=== PATIENT | female | born 1955 | race Caucasian/White ===

== ENCOUNTER 2018-10-12 09:23 | Day surgery (SDC) | payer MEDICARE, BC ==
[2018-10-12] MEDS ORDERED: TORAdol 30 mg Injection IV ONE (09:24)
[2018-10-12] MEDS ORDERED: DIPRIVAN 200 MG/20 ML IV ONE (09:24)
[2018-10-12] MEDS ORDERED: Depo-Medrol 40 MG/ML IM ONE (09:24)
[2018-10-12] MEDS ORDERED: Marcaine 0.5% SDV 10 ML IJ ONE (09:24)
[2018-10-12] MEDS ORDERED: TORAdol 30 mg Injection ONE (12:05)
--- NOTE | 2018-10-12 12:21 | XRAY ---
Indication: Left shoulder injection. Intraoperative fluoroscopy was provided for 24 seconds. Single digital spot image submitted for interpretation demonstrates spinal needle tip projecting over the left humeral head. Small amount of contrast injected for needle tip placement. Correlate with intraoperative findings/report.
--- NOTE | 2018-10-12 14:44 | XRAY ---
24 seconds fluoroscopy time in surgery for left shoulder injection.
[2018-10-12] MEDS ORDERED: Lactated Ringers 1,000 ML IV ONE (14:58)
== END 2018-10-12 12:13 | disposition home or self-care (01) ==
LOC: SDC-PAIN 09:23
PROVIDERS: ATTEND Psychiatry & Neurology Pain Medicine
DX: M19.019 Primary osteoarthritis, unspecified shoulder (principal); Z79.899 Other long term (current) drug therapy
CPT/HCPCS: 20610; 73030; 77002; J1030; J1885; J2704; Q9967

== ENCOUNTER 2019-01-04 10:57 | Day surgery (SDC) | payer MEDICARE, BC ==
[2019-01-04] MEDS ORDERED: DIPRIVAN 200 MG/20 ML IV ONE (10:58)
[2019-01-04] MEDS ORDERED: Xylocaine-Mpf 2 ML IJ ONE (10:58)
[2019-01-04] MEDS ORDERED: Depo-Medrol 40 MG/ML IM ONE (10:58)
[2019-01-04] MEDS ORDERED: Ketamine HCl 50 MG/ML IV ONE (10:58)
[2019-01-04] MEDS ORDERED: Xylocaine-Mpf 2% 5 Ml Vial IJ ONE (10:58)
--- NOTE | 2019-01-04 14:03 | XRAY ---
24 seconds fluoroscopy time in surgery for bilateral L4-S1 MBB.
--- NOTE | 2019-01-04 14:12 | XRAY ---
Indication: Bilateral L4-S1 MBB. Intraoperative fluoroscopy was provided for 24 seconds. 2 digital spot images submitted for interpretation demonstrates posterior needle tips projecting over the expected course of the left and right L4-S1 nerve roots. Correlate with intraoperative findings/report. Incidental bilateral L3-S1 posterior pedicle screws/spinal rods and intervertebral spacers.
[2019-01-04] MEDS ORDERED: Lactated Ringers 1,000 ML IV ONE (15:40)
== END 2019-01-04 13:07 | disposition home or self-care (01) ==
LOC: SDC-PAIN 10:57
PROVIDERS: ATTEND Psychiatry & Neurology Pain Medicine
DX: M47.817 Spondylosis without myelopathy or radiculopathy, lumbosacral region (principal); Z79.899 Other long term (current) drug therapy; K21.9 Gastro-esophageal reflux disease without esophagitis; E78.5 Hyperlipidemia, unspecified; F32.9 Major depressive disorder, single episode, unspecified
CPT/HCPCS: 64493; 64494; 72020; 77002; J1030; J2704

== ENCOUNTER 2019-02-22 09:56 | Day surgery (SDC) | payer MEDICARE, BC ==
[2019-02-22] MEDS ORDERED: Marcaine 0.5% SDV 10 ML IJ ONE (09:57)
[2019-02-22] MEDS ORDERED: Depo-Medrol 40 MG/ML IM ONE (09:57)
[2019-02-22] MEDS ORDERED: DIPRIVAN 200 MG/20 ML IV ONE (09:57)
[2019-02-22] MEDS ORDERED: TORAdol 30 mg Injection ONE (12:23)
--- NOTE | 2019-02-22 13:04 | XRAY ---
Indication: Bilateral L2-S1 MBB. Intraoperative fluoroscopy was provided for 39 seconds. Single digital spot image submitted for interpretation demonstrates posterior needle tips projecting over the expected course of the left and right L2-L5 nerve roots. Correlate with intraoperative findings/report. Incidental bilateral L3-S1 posterior spinal hardware and intervertebral spacers.
--- NOTE | 2019-02-22 13:06 | XRAY ---
39 seconds fluoroscopy time in surgery for bilateral L2-S1 MBB.
[2019-02-22] MEDS ORDERED: Lactated Ringers 1,000 ML IV ONE (17:02)
== END 2019-02-22 12:25 | disposition home or self-care (01) ==
LOC: SDC-PAIN 09:56
PROVIDERS: ATTEND Psychiatry & Neurology Pain Medicine
DX: M47.816 Spondylosis without myelopathy or radiculopathy, lumbar region (principal); E78.5 Hyperlipidemia, unspecified; F32.9 Major depressive disorder, single episode, unspecified
CPT/HCPCS: 72020; 77002; J1030; J1885; J2704

== ENCOUNTER 2019-06-28 10:48 | Day surgery (SDC) | payer MEDICARE, BC ==
[2019-06-28] MEDS ORDERED: Depo-Medrol 40 MG/ML IM ONE (10:49)
[2019-06-28] MEDS ORDERED: Marcaine 0.5% SDV 10 ML IJ ONE (10:49)
[2019-06-28] MEDS ORDERED: Ketamine HCl 50 MG/ML ONE (11:33)
[2019-06-28] MEDS ORDERED: DIPRIVAN 200 MG/20 ML IV ONE (11:33)
[2019-06-28] MEDS ORDERED: TORAdol 30 mg Injection ONE (11:55)
[2019-06-28] MEDS ORDERED: MORPHINE SULFATE 10 MG/ML ONE (12:04)
--- NOTE | 2019-06-28 14:20 | XRAY ---
44 seconds fluoroscopy time in surgery for bilateral L2-L5 MBB.
--- NOTE | 2019-06-28 14:20 | XRAY ---
Indication: Bilateral L2-L5 MBB. Intraoperative fluoroscopy was provided for 44 seconds. 2 digital spot images submitted for interpretation demonstrates posterior needle tips projecting over the expected course of the left and right L2-L5 nerve roots. Correlate with intraoperative findings/report. Incidental bilateral L3-S1 posterior spinal hardware and intervertebral spacers.
[2019-06-28] MEDS ORDERED: Lactated Ringers 1,000 ML IV ONE (15:25)
== END 2019-06-28 12:06 | disposition home or self-care (01) ==
LOC: SDC-PAIN 10:48 → SDC 10:48 → SDC-PAIN 12:06
PROVIDERS: ATTEND Psychiatry & Neurology Pain Medicine
DX: M47.816 Spondylosis without myelopathy or radiculopathy, lumbar region (principal); E78.00 Pure hypercholesterolemia, unspecified; E78.5 Hyperlipidemia, unspecified; F32.9 Major depressive disorder, single episode, unspecified; Z79.899 Other long term (current) drug therapy
CPT/HCPCS: 64493; 64494; 64495; 72020; 77002; J1030; J1885; J2270; J2704

== ENCOUNTER 2019-08-16 09:26 | Day surgery (SDC) | payer MEDICARE, BC ==
[2019-08-16] MEDS ORDERED: Xylocaine 1% Vial 30 ML PF IJ ONE (09:27)
[2019-08-16] MEDS ORDERED: Depo-Medrol 40 MG/ML IM ONE (09:27)
[2019-08-16] MEDS ORDERED: Marcaine 0.5% SDV 10 ML IJ ONE (09:27)
[2019-08-16] MEDS ORDERED: DIPRIVAN 200 MG/20 ML IV ONE ×2 (10:31→10:53)
[2019-08-16] MEDS ORDERED: Ketamine HCl 50 MG/ML ONE (10:33)
[2019-08-16] MEDS ORDERED: TORAdol 30 mg Injection ONE (11:22)
--- NOTE | 2019-08-16 11:28 | XRAY ---
Indication: L2-L5 RFA. Intraoperative fluoroscopy was provided for 54 seconds. 2 digital spot images submitted for interpretation demonstrates posterior needle tips projecting over the expected course of the right L2-L5 nerve roots. Correlate with intraoperative findings/report. Incidental partially visualized posterior L3-S1 fusion hardware/intervertebral spacers.
--- NOTE | 2019-08-16 12:21 | XRAY ---
54 seconds fluoroscopy time in surgery for right L2-L5 RFA.
[2019-08-16] MEDS ORDERED: Lactated Ringers 1,000 ML IV ONE (14:30)
== END 2019-08-16 11:25 | disposition home or self-care (01) ==
LOC: SDC-PAIN 09:26
PROVIDERS: ATTEND Psychiatry & Neurology Pain Medicine
DX: M47.816 Spondylosis without myelopathy or radiculopathy, lumbar region (principal); E78.5 Hyperlipidemia, unspecified; F41.8 Other specified anxiety disorders; E78.00 Pure hypercholesterolemia, unspecified; Z79.899 Other long term (current) drug therapy
CPT/HCPCS: 64635; 64636; 72100; 77002; J1030; J1885; J2001; J2704

== ENCOUNTER 2020-03-06 10:19 | Day surgery (SDC) | payer MEDICARE, BC ==
[2020-03-06] MEDS ORDERED: Marcaine 0.5% SDV 10 ML IM ONE (10:20)
[2020-03-06] MEDS ORDERED: Depo-Medrol 40 MG/ML IM ONE (10:20)
[2020-03-06] MEDS ORDERED: Ketamine HCl 50 MG/ML ONE (11:05)
[2020-03-06] MEDS ORDERED: DIPRIVAN 200 MG/20 ML IV ONE (11:05)
[2020-03-06] MEDS ORDERED: MORPHINE SULFATE 10 MG/ML ONE (11:25)
--- NOTE | 2020-03-06 12:35 | XRAY ---
Indication: Left L2-L5 MBB. Intraoperative fluoroscopy was provided for 36 seconds. Single digital spot image submitted for interpretation demonstrates posterior needle tips projecting over the expected course of the left L2-L5 nerve roots. Correlate with intraoperative findings/report. Incidental bilateral L3-S1 posterior spinal hardware and intervertebral spacers.
--- NOTE | 2020-03-06 12:48 | XRAY ---
36 seconds fluoroscopy time in surgery for left L2-L5 MBB.
[2020-03-06] MEDS ORDERED: Lactated Ringers 1,000 ML IV ONE (14:52)
== END 2020-03-06 11:37 | disposition home or self-care (01) ==
LOC: SDC-PAIN 10:19
PROVIDERS: ATTEND Psychiatry & Neurology Pain Medicine
DX: M47.816 Spondylosis without myelopathy or radiculopathy, lumbar region (principal); E78.5 Hyperlipidemia, unspecified; F41.8 Other specified anxiety disorders; Z79.899 Other long term (current) drug therapy
CPT/HCPCS: 64493; 64494; 64495; 72020; 77002; J1030; J2270; J2704

== ENCOUNTER 2020-07-03 10:23 | Day surgery (SDC) | payer MEDICARE, BC ==
[~2020-07-03 10:23] MED LIST: DIPRIVAN 200 MG/20 ML IV ONE; Ketamine HCl 50 MG/ML ONE
[2020-07-03] MEDS ORDERED: Depo-Medrol 40 MG/ML IM ONE (10:24)
[2020-07-03] MEDS ORDERED: BUPIVACAINE 0.5% VIAL IJ ONE (10:24)
[2020-07-03] MEDS ORDERED: TORAdol 30 mg Injection ONE (11:51)
--- NOTE | 2020-07-03 12:14 | XRAY ---
Indication: Left L2-L5 MBB. Intraoperative fluoroscopy was provided for 24 seconds. 2 digital spot images submitted for interpretation demonstrates posterior needle tips projecting over the expected left L2-L5 nerve roots. Correlate with intraoperative findings/report. Incidental bilateral L3-S1 posterior spinal hardware and intervertebral spacers.
[2020-07-03] MEDS ORDERED: Lactated Ringers 1,000 ML IV ONE (13:48)
--- NOTE | 2020-07-03 17:05 | XRAY ---
24 seconds of fluoroscopy was used in surgery for a left L2-L3, L3-L4, L4-L5 MBB.
== END 2020-07-03 12:00 | disposition home or self-care (01) ==
LOC: SDC-PAIN 10:23
PROVIDERS: ATTEND Psychiatry & Neurology Pain Medicine
DX: M47.816 Spondylosis without myelopathy or radiculopathy, lumbar region (principal); E78.5 Hyperlipidemia, unspecified; F41.8 Other specified anxiety disorders; E78.00 Pure hypercholesterolemia, unspecified; Z79.899 Other long term (current) drug therapy
CPT/HCPCS: 64493; 64494; 72020; 77002; J1030; J1885; J2704

== ENCOUNTER 2020-10-23 10:30 | Day surgery (SDC) | payer MEDICARE, BC ==
[2020-10-23] MEDS ORDERED: BUPIVACAINE 0.5% VIAL IJ ONE (10:31)
[2020-10-23] MEDS ORDERED: Depo-Medrol 40 MG/ML IM ONE (10:31)
[2020-10-23] MEDS ORDERED: Ketamine HCl 50 MG/ML ONE (11:48)
[2020-10-23] MEDS ORDERED: DIPRIVAN 200 MG/20 ML IV ONE (11:48)
--- NOTE | 2020-10-23 12:56 | XRAY ---
Indication: Left SI joint injection. Intraoperative fluoroscopy was provided for 11 seconds. 2 digital spot images submitted for interpretation demonstrates posterior needle tip projecting over the inferior left SI joint. Correlate with intraoperative findings/report. Incidental partially visualized lower lumbar posterior fusion hardware.
--- NOTE | 2020-10-23 12:56 | XRAY ---
Indication: Left greater trochanter injection. Intraoperative fluoroscopy was provided for 11 seconds. 2 digital spot images obtained prone submitted for interpretation demonstrates needle tip adjacent to left greater trochanter. Small amount of contrast injected for needle tip placement. Correlate with intraoperative findings/report.
[2020-10-23] MEDS ORDERED: Lactated Ringers 1,000 ML IV ONE (14:05)
--- NOTE | 2020-10-23 14:21 | XRAY ---
11 seconds fluoroscopy time in surgery for left SI joint injection.
--- NOTE | 2020-10-23 14:21 | XRAY ---
11 seconds fluoroscopy time in surgery for left greater trochanteric injection.
== END 2020-10-23 12:11 | disposition home or self-care (01) ==
LOC: SDC-PAIN 10:30
PROVIDERS: ATTEND Psychiatry & Neurology Pain Medicine
DX: M46.1 Sacroiliitis, not elsewhere classified (principal); M16.12 Unilateral primary osteoarthritis, left hip; E78.5 Hyperlipidemia, unspecified; Z79.899 Other long term (current) drug therapy; E78.00 Pure hypercholesterolemia, unspecified
CPT/HCPCS: 20610; 27096; 72020; 73501; 77002; G0260; J1030; J2704; Q9966

== ENCOUNTER 2021-04-13 12:34 | Observation (INO) | payer MEDICARE, BC ==
[2021-04-13] MEDS ORDERED: Zofran 4 MG/2 ML VIAL IV ONE (12:52)
[2021-04-13] MEDS ORDERED: BABY ASPIRIN 81 MG CHEW PO ONE (12:52)
[2021-04-13] MEDS ORDERED: MORPHINE SULFATE 4 MG INJ IV ONE (12:52)
[2021-04-13] MEDS ORDERED: Zofran 4 MG/2 ML VIAL ONE (13:07)
[2021-04-13] MEDS ORDERED: MORPHINE SULFATE 4 MG INJ ONE (13:08)
--- NOTE | 2021-04-13 13:08 | ERPHSYRPT ---
- History of Present Illness Time Seen by Provider: 04/13/21 12:46 Historian: patient Exam Limitations: no limitations Patient Subjective Stated Complaint: Pt states "About two hours ago I started to have chest pain and I took 2 nitro but it did not get any better." Triage Nursing Assessment: Pt presented alert and oriented X 3, skin pwd Pt ambulates with a slow assisted gait, able to speak in clear full sentences. pt in no apparent respiratory distress. Physician History: 66 years old female presented in the ER with chief complaint of substernal/right-sided chest pain sudden onset almost 3 hours prior to arrival while she was sitting, 7/10 intensity, associated with palpitations and mild shortness of breath. She took 2 nitros and Advil prior to arrival with no significant relief. Reports having chest pains in the past and almost 8 years ago had a cardiac cath done which was negative. Denies any fever or chills but had some cold symptoms since last night. Timing/Duration: hour(s) (3), constant, sudden, worse Activities at Onset: rest Quality: sharpness Location: central Chest Pain Radiation: neck Severity of Pain-Max: moderate Severity of Pain-Current: moderate Modifying Factors: Improves With: nothing Associated Symptoms: palpitations, shortness of breath Prior Chest Pain/Cardiac Workup: angina Nitro Today/Relief: 0.4 mg x 2 Aspirin Treatment Today: no aspirin today Allergies/Adverse Reactions: No Known Drug Allergies Allergy (Verified 04/13/21 12:43) Home Medications: Bupropion HCl [Wellbutrin] 150 mg PO DAILY 12/23/13 [History] Zolpidem Tartrate [Ambien] 10 mg PO HS 12/23/13 [History] Calcium Carb, Cit/Magnesium Ox [Calmag Thins Tablet] 1 each PO DAILY 01/16/16 [History] Oxycodone HCl/Acetaminophen [Oxycodone-Acetaminophen 5-325] 1 each PO Q12H PRN PRN 01/16/16 [History] Psyllium Husk [Fiber] 0.52 gm PO DAILY 01/16/16 [History] Pravastatin Sodium 20 mg PO DAILY 11/08/17 [History] Hx Tetanus, Diphtheria Vaccination/Date Given: Yes Hx Influenza Vaccination/Date Given: Yes Hx Pneumococcal Vaccination/Date Given: No Immunizations Up to Date: Yes Travel Risk - International Travel Have you traveled outside of the country in past 3 weeks: No - Coronavirus Screening Are you exhibiting any of the following symptoms?: No Close contact with a COVID-19 positive Pt in past 14-21 Days: No - Vaccine Status Have you recieved a Covid-19 vaccination: Yes 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 - Vaccination Dates Date of 2cond Vaccination (if applicable): 11/2020 - Review of Systems Constitutional: No Symptoms Eyes: No Symptoms Ears, Nose, & Throat: No Symptoms Respiratory: No Symptoms Cardiac: Chest Pain Abdominal/Gastrointestinal: No Symptoms Genitourinary Symptoms: No Symptoms Musculoskeletal: No Symptoms Skin: No Symptoms Neurological: No Symptoms Psychological: No Symptoms Endocrine: No Symptoms Hematologic/Lymphatic: No Symptoms Immunological/Allergic: No Symptoms - Past Medical History Pertinent Past Medical History: Yes Neurological History: Peripheral Neuropathy Cardiac History: High Cholesterol Respiratory History: No Pertinent History Endocrine Medical History: No Pertinent History Musculoskeletal History: Fractures Psycho-Social History: Depression Other Medical History: 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 back - Social History Smoking Status: Never smoker Exposure to second hand smoke: Yes Drug Use: none Patient Lives Alone: No - Nursing Vital Signs Nursing Vital Signs: Initial Vital Signs Temperature 98.0 F 04/13/21 12:35 Pulse Rate 92 H 04/13/21 12:35 Respiratory Rate 20 04/13/21 12:35 Blood Pressure 128/91 04/13/21 12:35 O2 Sat by Pulse Oximetry 94 L 04/13/21 12:35 Pain Scale Pain Intensity 4 - Physical Exam General Appearance: no apparent distress, alert Eye Exam: PERRL/EOMI, eyes nml inspection Ears, Nose, Throat Exam: normal ENT inspection, TMs normal, pharynx normal Neck Exam: normal inspection, non-tender, supple, full range of motion Respiratory Exam: normal breath sounds, lungs clear Cardiovascular Exam: regular rate/rhythm, normal heart sounds Gastrointestinal/Abdomen Exam: soft, normal bowel sounds, No tenderness Back Exam: normal inspection, normal range of motion Extremity Exam: normal inspection, normal range of motion, pelvis stable Neurologic Exam: alert, oriented x 3, cooperative Skin Exam: normal color SpO2 Interpretation: normal SpO2: 94 O2 Delivery: Room Air - Course EKG Interpreted by Me: RATE, Sinus Rhythm, NORMAL AXIS, NORMAL INTERVALS, NORMAL QRS Ordered Tests: Active Orders 24 hr Category Date Time Status Autobody Technician STAT Care 04/13/21 12:52 Active EKG-ER Only STAT Care 04/13/21 12:52 Active IV Insertion STAT Care 04/13/21 12:52 Active Oxygen-ED Only Nasal Cannula 2 lpm Care 04/13/21 12:52 Active CHEST 1 VIEW (PORTABLE) Stat Exams 04/13/21 12:52 Taken CBC W DIFF Stat Lab 04/13/21 12:40 Completed CMP Stat Lab 04/13/21 12:40 Completed D-DIMER QUANTITATIVE Stat Lab 04/13/21 13:12 Completed NT PRO BNP Stat Lab 04/13/21 12:40 Completed TROPONIN Q3H Lab 04/13/21 12:40 Completed TROPONIN Q3H Lab 04/13/21 16:00 Ordered TROPONIN Q3H Lab 04/13/21 19:00 Ordered TROPONIN Q3H Lab 04/13/21 22:00 Ordered TROPONIN Q3H Lab 04/14/21 01:00 Ordered Transfer Order Routine Transfer 04/13/21 Ordered Medication Summary Discontinued Medications Generic Name Dose Route Start Last Admin Trade Name Freq PRN Reason Stop Dose Admin Aspirin 324 mg 04/13/21 12:52 04/13/21 13:03 Baby Aspirin 81 Mg Chew PO 04/13/21 12:53 324 mg STAT ONE Administration Sodium Chloride 1,000 mls @ 999 mls/hr 04/13/21 14:23 04/13/21 14:35 Sodium Chloride 0.9% 1000 Ml IV 04/13/21 15:23 999 mls/hr .Q1H1M STA Administration Sodium Chloride Confirm 04/13/21 14:33 Sodium Chloride 0.9% 1000 Ml Administered 04/13/21 14:34 Dose 1,000 mls @ ud .ROUTE .STK-MED ONE Morphine Sulfate 4 mg 04/13/21 12:52 04/13/21 13:09 Morphine Sulfate 4 Mg Inj IV 04/13/21 12:53 4 mg STAT ONE Administration Morphine Sulfate Confirm 04/13/21 13:08 Morphine Sulfate 4 Mg Inj Administered 04/13/21 13:09 Dose 4 mg .ROUTE .STK-MED ONE Ondansetron HCl 4 mg 04/13/21 12:52 04/13/21 13:10 Zofran 4 Mg/2 Ml Vial IV 04/13/21 12:53 4 mg STAT ONE Administration Ondansetron HCl Confirm 04/13/21 13:07 Zofran 4 Mg/2 Ml Vial Administered 04/13/21 13:08 Dose 4 mg .ROUTE .STK-MED ONE Lab/Rad Data: Laboratory Result Diagrams 04/13/21 12:40 04/13/21 12:40 Laboratory Results 04/13/21 04/13/21 04/13/21 Range/Units 13:12 12:40 12:40 WBC (4.0-10.5) K/mm3 RBC (4.1-5.4) M/mm3 Hgb (12.0-16.0) gm/dl Hct (35-47) % MCV (78-100) fl MCH (26-32) pg MCHC (32-36) g/dl RDW (11.5-14.0) % Plt Count (150-450) K/mm3 MPV (7.5-11.0) fl Gran % (36.0-66.0) % Eos # (Auto) (0-0.5) Absolute Lymphs (auto) (1.0-4.6) Absolute Monos (auto) (0.0-1.3) Lymphocytes % (24.0-44.0) % Monocytes % (0.0-12.0) % Eosinophils % (0.00-5.0) % Basophils % (0.0-0.4) % Absolute Granulocytes (1.4-6.9) Basophils # (0-0.4) D-Dimer 220 (215-500) ng/mL Sodium 139 (137-145) mmol/L Potassium 4.8 (3.5-5.1) mmol/L Chloride 106 (98-107) mmol/L Carbon Dioxide 20 L (22-30) mmol/L Anion Gap 17.7 H (5-15) MEQ/L BUN 12 (7-17) mg/dL Creatinine 0.51 L (0.52-1.04) mg/dL Estimated GFR > 60.0 ML/MIN Glucose 111 H (74-106) mg/dL Calcium 10.4 H (8.4-10.2) mg/dL Total Bilirubin 0.60 (0.2-1.3) mg/dL AST 31 (14-36) U/L ALT 24 (0-35) U/L Alkaline Phosphatase 57 (38-126) U/L Troponin I < 0.012 (0.000-0.034) ng/mL NT-Pro-B Natriuret Pep 294 (0-900) pg/mL Serum Total Protein 7.5 (6.3-8.2) g/dL Albumin 4.6 (3.5-5.0) g/dL 04/13/21 Range/Units 12:40 WBC 6.4 (4.0-10.5) K/mm3 RBC 4.97 (4.1-5.4) M/mm3 Hgb 14.5 (12.0-16.0) gm/dl Hct 44.9 (35-47) % MCV 90.3 (78-100) fl MCH 29.2 (26-32) pg MCHC 32.3 (32-36) g/dl RDW 12.4 (11.5-14.0) % Plt Count 240 (150-450) K/mm3 MPV 10.8 (7.5-11.0) fl Gran % 57.3 (36.0-66.0) % Eos # (Auto) 0.16 (0-0.5) Absolute Lymphs (auto) 2.10 (1.0-4.6) Absolute Monos (auto) 0.43 (0.0-1.3) Lymphocytes % 33.1 (24.0-44.0) % Monocytes % 6.8 (0.0-12.0) % Eosinophils % 2.5 (0.00-5.0) % Basophils % 0.3 (0.0-0.4) % Absolute Granulocytes 3.64 (1.4-6.9) Basophils # 0.02 (0-0.4) D-Dimer (215-500) ng/mL Sodium (137-145) mmol/L Potassium (3.5-5.1) mmol/L Chloride (98-107) mmol/L Carbon Dioxide (22-30) mmol/L Anion Gap (5-15) MEQ/L BUN (7-17) mg/dL Creatinine (0.52-1.04) mg/dL Estimated GFR ML/MIN Glucose (74-106) mg/dL Calcium (8.4-10.2) mg/dL Total Bilirubin (0.2-1.3) mg/dL AST (14-36) U/L ALT (0-35) U/L Alkaline Phosphatase (38-126) U/L Troponin I (0.000-0.034) ng/mL NT-Pro-B Natriuret Pep (0-900) pg/mL Serum Total Protein (6.3-8.2) g/dL Albumin (3.5-5.0) g/dL - Progress Progress: improved Air Movement: fair Progress Note: 04/13/21 15:20 66 years old is evaluated for chest pain. Initial EKG showed normal sinus rhythm with no acute ischemic changes. Negative initial troponins and D-dimer. Chest x-ray negative for acute cardiopulmonary findings reviewed by me, off icial report is pending. Grossly unremarkable chemistries except for mild dehydration and given fluid bolus. She is given morphine for symptomatic relief along with aspirin, on reevaluation feeling better and her chest pain is much more relieved. Patient does not have any cardiac work-up done in the recent past. Discussed with and patient is being admitted for rule out [place]. Blood Culture(s) Obtained: No Antibiotics given: No Discussed with : Yeimi Will see patient in: hospital (observation) Counseled pt/family regarding: lab results, diagnosis, rad results - Departure Departure Disposition: Observation Clinical Impression: Chest pain, rule out acute myocardial infarction Condition: Stable Critical Care Time: No Referrals: YONI RIOJAS MD [Primary Care Provider] -
[2021-04-13 13:26] LABS: Absolute Neutrophil Ct (ANC) 3.64 (1.4-6.9); BASOPHIL % 0.3 % (0.0-0.4); Basophil (Absolute #) 0.02 (0-0.4); Eosinophil % 2.5 % (0.00-5.0); Eosinophil (Absolute #) 0.16 (0-0.5); Hematocrit 44.9 % (35-47); Hemoglobin 14.5 gm/dl (12.0-16.0); Lymphocytes % 33.1 % (24.0-44.0); Mean Cell Volume 90.3 fl (78-100); Mean Corpuscular Hemoglobin 29.2 pg (26-32); Mean Corpuscular Hgb Concent. 32.3 g/dl (32-36); Mean Platelet Volume 10.8 fl (7.5-11.0); Monocyte (Absolute #) 0.43 (0.0-1.3); Monocytes % 6.8 % (0.0-12.0); Neutrophil % 57.3 % (36.0-66.0); Platelet Count 240 K/mm3 (150-450); Red Blood Count 4.97 M/mm3 (4.1-5.4); Red Cell Distribution Width 12.4 % (11.5-14.0); White Blood Count 6.4 K/mm3 (4.0-10.5)
[2021-04-13 13:50] LABS: ALBUMIN 4.6 g/dL (3.5-5.0); ALKALINE PHOSPHATASE 57 U/L (38-126); ANION GAP 17.7 MEQ/L (5-15); BLOOD UREA NITROGEN 12 mg/dL (7-17); CHLORIDE 106 mmol/L (98-107); Calcium 10.4 mg/dL (8.4-10.2); Carbon Dioxide 20 mmol/L (22-30); Creatinine 1 0.51 mg/dL (0.52-1.04); EST GLOMERULAR FILTRATION RATE > 60.0 ML/MIN; Glucose 111 mg/dL (74-106); NT PRO BNP 294 pg/mL (0-900); Potassium 4.8 mmol/L (3.5-5.1); SGOT/AST 31 U/L (14-36); SGPT/ALT 24 U/L (0-35); SODIUM 139 mmol/L (137-145); Total Protein 7.5 g/dL (6.3-8.2)
[2021-04-13] MEDS ORDERED: Sodium Chloride 0.9% 1000 ML 1,000 ML IV STA (14:23)
[2021-04-13] MEDS ORDERED: Sodium Chloride 0.9% 1000 ML 1,000 ML ONE (14:33)
--- NOTE | 2021-04-13 17:32 | XRAY ---
Indication: Chest pain. Comparison: None Portable chest slightly underinflated and clear. Heart is not enlarged. Bony thorax intact with mild degenerative changes. Impression: Nonacute chest.
[2021-04-13] MEDS ORDERED: TYLENOL 325 MG PO PRN (18:06)
[2021-04-13] MEDS ORDERED: MORPHINE SULFATE 2 MG INJ IV PRN (18:06)
[2021-04-13] MEDS ORDERED: Zofran 4 MG/2 ML VIAL IV PRN (18:06)
[2021-04-13] MEDS ORDERED: DUONEB 0.5-3 MG/3 ml Neb IH PRN (18:06)
[2021-04-13] MEDS: PERCOCET TABLET 5/325MG PO PRN (19:56)
[2021-04-13] MEDS ORDERED: ZOCOR 20MG PO SCH (22:00)
[2021-04-13] MEDS ORDERED: Ambien 10 MG PO SCH (22:00)
[2021-04-14 02:12] LABS: BASOPHIL % 0.2 % (0.0-0.4); Basophil (Absolute #) 0.01 (0-0.4); Eosinophil % 3.7 % (0.00-5.0); Hematocrit 40.3 % (35-47); Hemoglobin 12.7 gm/dl (12.0-16.0); Lymphocyte (Absolute #) 2.12 (1.0-4.6); Mean Cell Volume 93.1 fl (78-100); Mean Corpuscular Hemoglobin 29.3 pg (26-32); Mean Corpuscular Hgb Concent. 31.5 g/dl (32-36); Mean Platelet Volume 10.1 fl (7.5-11.0); Monocyte (Absolute #) 0.41 (0.0-1.3); Monocytes % 7.5 % (0.0-12.0); Neutrophil % 49.6 % (36.0-66.0); Platelet Count 205 K/mm3 (150-450); Red Blood Count 4.33 M/mm3 (4.1-5.4); Red Cell Distribution Width 12.6 % (11.5-14.0); White Blood Count 5.4 K/mm3 (4.0-10.5)
[2021-04-14 02:25] LABS: ANION GAP 12.4 MEQ/L (5-15); BLOOD UREA NITROGEN 16 mg/dL (7-17); CHLORIDE 106 mmol/L (98-107); Calcium 9.1 mg/dL (8.4-10.2); Carbon Dioxide 25 mmol/L (22-30); Creatinine 1 0.73 mg/dL (0.52-1.04); EST GLOMERULAR FILTRATION RATE > 60.0 ML/MIN; Glucose 120 mg/dL (74-106); Potassium 3.9 mmol/L (3.5-5.1); SODIUM 140 mmol/L (137-145)
[2021-04-14] MEDS ORDERED: CYANOCOBALAMIN 5000 MCG PO SCH (08:15)
[2021-04-14] MEDS ORDERED: MEDICATION INTERVENTION MC SCH ×3 (08:45)
[2021-04-14] MEDS: PERCOCET TABLET 5/325MG PO PRN (09:41)
[2021-04-14] MEDS ORDERED: PROTONIX 40 MG IV IV SCH (10:00)
[2021-04-14] MEDS ORDERED: MAGNESIUM OX PO SCH (10:00)
[2021-04-14] MEDS ORDERED: PSYLLIUM HUSK 0.52 GM PO SCH (10:00)
[2021-04-14] MEDS ORDERED: CALCIUM CARB CIT PO SCH (10:00)
[2021-04-14] MEDS ORDERED: Wellbutrin XL 150 MG PO SCH (10:00)
[2021-04-14] MEDS ORDERED: THERAGRAN MULTIVITAMIN PO SCH (10:00)
[2021-04-14] MEDS ORDERED: NON-FORMULARY ITEM (Bupropion Hcl [Wellbutrin] 150 mg) PO SCH (10:00)
[2021-04-14] MEDS ORDERED: NON-FORMULARY ITEM (Multivitamin [Multi-Vitamin Daily] 1 EACH) PO SCH (10:00)
[2021-04-14 12:33] VITALS: BP 124/56; PULSE 78; O2SAT 95
[2021-04-14] MEDS ORDERED: NON-FORMULARY ITEM (Pravastatin Sodium [Pravastatin Sodium] 20 MG) PO SCH (22:00)
--- NOTE | 2021-04-15 08:01 | PCM.SSS ---
History of Present Illness - Chief Complaint Chief Complaint: Chest pain for 1 day History of Present Illness: is a 66 year old female.presented in the ER with chief complaint of substernal/right-sided chest pain sudden onset almost 3 hours prior to arrival while she was sitting, 7/10 intensity, associated with palpitations and mild shortness of breath. She took 2 nitros and Advil prior to arrival with no significant relief. Reports having chest pains in the past and almost 8 years ago had a cardiac cath done which was negative. Denies any fever or chills but had some cold symptoms since last night. - Review of Systems Constitutional: No Fever, No Chills Eyes: No Symptoms Ears, Nose, & Throat: No Symptoms Respiratory: No Cough, No Short Of Breath Cardiac: Chest Pain, No Edema, No Syncope Abdominal/Gastrointestinal: No Abdominal Pain, No Nausea, No Vomiting, No Diarrhea Genitourinary Symptoms: No Dysuria Musculoskeletal: No Back Pain, No Neck Pain Skin: No Rash Neurological: No Dizziness, No Focal Weakness, No Sensory Changes Psychological: No Symptoms Endocrine: No Symptoms Hematologic/Lymphatic: No Symptoms Immunological/Allergic: No Symptoms Medications & Allergies Home Medications: Home Medication List Bupropion HCl [Wellbutrin] 150 mg PO DAILY 12/23/13 [History Confirmed 04/13/21] Zolpidem Tartrate [Ambien] 10 mg PO HS 12/23/13 [History Confirmed 04/13/21] Calcium Carb, Cit/Magnesium Ox [Calmag Thins Tablet] 1 each PO DAILY 01/16/16 [History Confirmed 04/13/21] Oxycodone HCl/Acetaminophen [Oxycodone-Acetaminophen 5-325] 1 each PO Q12H PRN PRN 01/16/16 [History Confirmed 04/13/21] Psyllium Husk [Fiber] 0.52 gm PO DAILY 01/16/16 [History Confirmed 04/13/21] Pravastatin Sodium 20 mg PO HS 11/08/17 [History Confirmed 04/13/21] Cyanocobalamin (Vitamin B-12) [Vitamin B-12] 5,000 mcg PO WEEKLY 04/13/21 [History Confirmed 04/13/21] Multivitamin [Multi-Vitamin Daily] 1 each PO DAILY 04/13/21 [History Confirmed 04/13/21] Allergies/Adverse Reactions: Allergies Allergy/AdvReac Type Severity Reaction Status Date / Time No Known Drug Allergies Allergy Verified 04/13/21 18:00 - Past Medical History Past Medical History: Yes Neurological History: Peripheral Neuropathy ENT History: No Pertinent History Cardiac History: Angina, High Cholesterol Respiratory History: Sleep Apnea Endocrine Medical History: No Pertinent History Musculoskelatal History: Fractures GI Medical History: Diverticulitis History: Other Pyscho-Social History: Depression Reproductive Disorders: Fibroids Comment: 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; R ANKLE FX; hx: kidney stone that needed surgical removal (1988); slip and fall that caused back injury needing 4 rods, and 12 screws in F3-F5 - Female History Are you now?: No - Past Surgical History Past Surgical History: Yes Neuro Surgical History: No Pertinent History Cardiac History: Cardiac Catheterization Respiratory Surgery: No Pertinent History Genitourinary Surgical Hx: Kidney Surgery Female Surgical History: Hysterectomy Other Surgical History: RIGHT ANKLE, KIDNEY STONE REMOVED, TONSILS REMOVED. back - Social History Smoking Status: Never smoker Exposure to second hand smoke: No Alcohol: Daily Drug Use: none - Physical Exam Vital Signs: Vital Signs - 24 hr Temp Pulse Resp BP Pulse Ox 04/14/21 12:00 98.4 F 78 16 124/56 95 04/14/21 08:00 98.1 F 73 16 133/83 94 L General Appearance: no apparent distress, alert Neurologic Exam: alert, oriented x 3, cooperative, normal mood/affect, nml cerebellar function, nml station & gait, sensation nml, No motor deficits Eye Exam: PERRL/EOMI, eyes nml inspection Ears, Nose, Throat Exam: normal ENT inspection, TMs normal, pharynx normal, moist mucous membranes Neck Exam: normal inspection, non-tender, supple, full range of motion Respiratory Exam: normal breath sounds, lungs clear, No respiratory distress Cardiovascular Exam: regular rate/rhythm, normal heart sounds, normal peripheral pulses Gastrointestinal/Abdomen Exam: soft, normal bowel sounds, No tenderness, No mass Back Exam: normal inspection, normal range of motion, No CVA tenderness, No vertebral tenderness Extremity Exam: normal inspection, normal range of motion, pelvis stable Skin Exam: normal color, warm, dry, No rash Lymphatic Exam: No adenopathy Results - Radiology Impressions Radiology Exams & Impressions: Radiology Procedures Category Date Time Status CHEST 1 VIEW (PORTABLE) Stat Exams 04/13/21 12:52 Completed Assessment/Plan (1) Chest pain, rule out acute myocardial infarction Status: Acute Assessment & Plan: Last Vital Signs Temp 98.4 F 04/14/21 12:00 Pulse 78 04/14/21 12:00 Resp 16 04/14/21 12:00 BP 124/56 04/14/21 12:00 Pulse Ox 95 04/14/21 12:00 Allergies No Known Drug Allergies Allergy (Verified 04/13/21 18:00) Intake & Output 04/14/21 04/15/21 11:59 11:59 Intake Total 830 480 Balance 830 480 Weight 65.9 kg Code(s): R07.9 - CHEST PAIN, UNSPECIFIED Hospital Summary - Hospital Course Hospital Course: Chief Complaint Diagnosis Chest pain rule out acute HI Allergies Allergy/AdvReac Type Severity Reaction Status Date / Time No Known Drug Allergies Allergy Verified 04/13/21 18:00 Vital Signs (Last 24 hours) Temp Pulse Resp BP Pulse Ox 04/14/21 12:00 98.4 F 78 16 124/56 95 Home Medications Medication Instructions Recorded Confirmed Last Taken Type Cyanocobalamin (Vitamin B-12) 5,000 mcg PO WEEKLY 04/13/21 04/13/21 04/07/21 History [Vitamin B-12] Multivitamin [Multi-Vitamin Daily] 1 each PO DAILY 04/13/21 04/13/21 04/13/21 History Current Medications Discontinued Medications Generic Name Dose Route Start Last Admin Trade Name Freq PRN Reason Stop Dose Admin Acetaminophen 650 mg 04/13/21 18:06 Tylenol 325 Mg PO 05/13/21 18:05 Q4H PRN PRN PAIN AND/OR FEVER Albuterol/Ipratropium 3 ml 04/13/21 18:06 Duoneb 0.5-3 Mg/3 Ml Neb IH 05/13/21 18:05 Q4HPRN PRN SHORTNESS OF BREATH/WHEEZING Aspirin 324 mg 04/13/21 12:52 04/13/21 13:03 Baby Aspirin 81 Mg Chew PO 04/13/21 12:53 324 mg STAT ONE Administration Bupropion HCl 150 mg 04/14/21 10:00 04/14/21 09:35 Wellbutrin Xl 150 Mg PO 05/14/21 09:59 150 mg DAILY VERA Administration Sodium Chloride 1,000 mls @ 999 mls/hr 04/13/21 14:23 04/13/21 16:30 Sodium Chloride 0.9% 1000 Ml IV 04/13/21 15:23 Infused .Q1H1M STA Infusion Sodium Chloride Confirm 04/13/21 14:33 Sodium Chloride 0.9% 1000 Ml Administered 04/13/21 14:34 Dose 1,000 mls @ ud .ROUTE .STK-MED ONE Miscellaneous Information 1 each 04/14/21 08:45 Medication Intervention 05/14/21 08:44 .RN TO CHECK VERA Miscellaneous Information 1 each 04/14/21 08:45 Medication Intervention 05/14/21 08:44 .RN TO CHECK VERA Miscellaneous Information 1 each 04/14/21 08:45 Medication Intervention 05/14/21 08:44 .RN TO CHECK VERA Morphine Sulfate 4 mg 04/13/21 12:52 04/13/21 13:09 Morphine Sulfate 4 Mg Inj IV 04/13/21 12:53 4 mg STAT ONE Administration Morphine Sulfate Confirm 04/13/21 13:08 Morphine Sulfate 4 Mg Inj Administered 04/13/21 13:09 Dose 4 mg .ROUTE .STK-MED ONE Morphine Sulfate 2 mg 04/13/21 18:06 Morphine Sulfate 2 Mg Inj IV 04/18/21 18:05 Q4H PRN PRN PAIN Multivitamins Therapeutic 1 tab 04/14/21 10:00 04/14/21 09:35 Theragran Multivitamin PO 05/14/21 09:59 1 tab DAILY VERA Administration Ondansetron HCl 4 mg 04/13/21 12:52 04/13/21 13:10 Zofran 4 Mg/2 Ml Vial IV 04/13/21 12:53 4 mg STAT ONE Administration Ondansetron HCl Confirm 04/13/21 13:07 Zofran 4 Mg/2 Ml Vial Administered 04/13/21 13:08 Dose 4 mg .ROUTE .STK-MED ONE Ondansetron HCl 4 mg 04/13/21 18:06 Zofran 4 Mg/2 Ml Vial IV 05/13/21 18:05 Q6H PRN PRN NAUSEA/VOMITING Oxycodone/Acetaminophen 1 tab 04/13/21 19:43 04/14/21 09:41 Percocet Tablet 5/325mg PO 04/18/21 19:42 1 tab Q12H PRN PRN Administration PAIN Pantoprazole Sodium 40 mg 04/14/21 10:00 04/14/21 09:28 Protonix 40 Mg Iv IV 05/14/21 09:59 40 mg Q24H10 VERA Administration Simvastatin 20 mg 04/13/21 22:00 04/13/21 21:41 Zocor 20mg PO 05/13/21 21:59 20 mg HS VERA Administration Zolpidem Tartrate 10 mg 04/13/21 22:00 04/13/21 21:41 Ambien 10 Mg PO 05/13/21 21:59 10 mg HS VERA Administration Intake & Output (Last 24 hours) 04/12/21 04/13/21 04/14/21 04/15/21 11:59 11:59 11:59 11:59 Intake Total 830 480 Balance 830 480 Weight 65.9 kg Orders (Last 24 hours) Category Date Time Status Bupropion HCl Xl 150 mg [Wellbutrin XL 150 MG] Med 04/14/21 10:00 Discontinued 150 mg PO DAILY Medication Intervention Med 04/14/21 08:45 Discontinued 1 each MC .RN TO CHECK Medication Intervention Med 04/14/21 08:45 Discontinued 1 each MC .RN TO CHECK Medication Intervention Med 04/14/21 08:45 Discontinued 1 each MC .RN TO CHECK Multivitamins,Therapeutic Tab* [Theragran Multivitamin* Med 04/14/21 10:00 Discontinued ] 1 tab PO DAILY Pantoprazole 40 mg [Protonix 40 mg IV] Med 04/14/21 10:00 Discontinued 40 mg IV Q24H10 Patient Care Notes (Last 24 hours) 04/14/21 14:02 Nursing Note by Juanita Martines FAXED DISCHARGE RECORDS TO DR ROCHA'S OFFICE TODAY 04/14/21 @ [id number] Evans Initialized on 04/14/21 14:02 - END OF NOTE - Vitals & Intake/Output Vital Signs: Vital Signs Temperature 98.4 F 04/14/21 12:00 Pulse Rate 78 04/14/21 12:00 Respiratory Rate 16 04/14/21 12:00 Blood Pressure 124/56 04/14/21 12:00 O2 Sat by Pulse Oximetry 95 04/14/21 12:00 Intake & Output: Intake & Output 04/12/21 04/13/21 04/14/21 04/15/21 11:59 11:59 11:59 11:59 Intake Total 830 480 Balance 830 480 Weight 65.9 kg - Lab Result Diagrams: 04/14/21 02:00 04/14/21 02:00 - Radiology Exams Ordered Rad Exams-Entire Visit: Radiology Procedures Category Date Time Status CHEST 1 VIEW (PORTABLE) Stat Exams 04/13/21 12:52 Completed - Procedures and Test Procedures and Tests throughout Hospitalization: Therapy Orders & Screens 04/13/21 18:06 Oxygen Nasal Cannula 2 lpm Comment: - Discharge Discharge Date: 04/14/21 Disposition: Home, Self-Care Condition: Stable Prescriptions: Continue Bupropion HCl [Wellbutrin] 150 mg PO DAILY Zolpidem Tartrate [Ambien] 10 mg PO HS Calcium Carb, Cit/Magnesium Ox [Calmag Thins Tablet] 1 each PO DAILY Oxycodone HCl/Acetaminophen [Oxycodone-Acetaminophen 5-325] 1 each PO Q12H PRN PRN PRN Reason: Pain Psyllium Husk [Fiber] 0.52 gm PO DAILY Pravastatin Sodium 20 mg PO HS Multivitamin [Multi-Vitamin Daily] 1 each PO DAILY Cyanocobalamin (Vitamin B-12) [Vitamin B-12] 5,000 mcg PO WEEKLY Instructions: Chest Pain (DC) Follow up with: YONI RIOJAS MD [Primary Care Provider] - 04/21/21 2:00 pm (APPOINTMENT AT THE [facility]) TORREY ROCHA [COURTESY STAFF] - 05/07/21 10:40 am Forms: Discharge Instructions
== END 2021-04-14 13:30 | disposition home or self-care (01) ==
LOC: ED 12:34 → MED SURG 17:51
PROVIDERS: ADMIT General Practice; ATTEND General Practice
DX: R07.9 Chest pain, unspecified (principal); R00.2 Palpitations; R06.02 Shortness of breath; M54.2 Cervicalgia; Z79.899 Other long term (current) drug therapy; Z20.828 Contact with and (suspected) exposure to other viral communicable diseases
CPT/HCPCS: 36000; 36415; 71045; 80048; 80053; 83880; 84484; 85025; 85379; 93005; 93041; 93268; 94760; 96360; 96374; 96375; 99285; G0378; U0003; J2270; J2405; A9270-GY

== ENCOUNTER 2021-07-23 09:12 | Day surgery (SDC) | payer MEDICARE, BC ==
[2021-07-23] MEDS ORDERED: Depo-Medrol 40 MG/ML IM ONE (09:13)
[2021-07-23] MEDS ORDERED: Xylocaine 1% Vial 30 ML PF IJ ONE (09:13)
[2021-07-23] MEDS ORDERED: Sodium Chloride 0.9% 10 ML FLUSH Syringe IJ ONE (09:13)
[2021-07-23] MEDS ORDERED: BUPIVACAINE 0.5% VIAL IJ ONE (09:13)
[2021-07-23] MEDS ORDERED: Lactated Ringers 1,000 ML IV ONE (10:44)
[2021-07-23] MEDS ORDERED: DIPRIVAN 200 MG/20 ML IV ONE ×3 (10:46→10:58)
[2021-07-23] MEDS ORDERED: MORPHINE SULFATE 2 MG INJ ONE (11:02)
--- NOTE | 2021-07-23 11:35 | XRAY ---
Indication: Caudal JORGE LUIS. Intraoperative fluoroscopy provided for 1 minutes 11 seconds. 3 digital spot images submitted for interpretation demonstrates caudal posterior needle tip projecting mid sacrum. Small amount of contrast injected for needle tip placement. Correlate with intraoperative findings/report. Incidental incompletely visualized bilateral lumbosacral junction spinal fusion hardware.
--- NOTE | 2021-07-23 11:37 | XRAY ---
Indication: Left hip injection. Intraoperative fluoroscopy provided for 19 seconds. Single digital spot image obtained prone submitted for interpretation demonstrates needle tip lateral to the left femur neck. Small amount of contrast injected for needle tip placement. Correlate with intraoperative findings/report.
--- NOTE | 2021-07-23 13:00 | XRAY ---
19 seconds fluoroscopy time in surgery for intra-articular injection of the left hip.
--- NOTE | 2021-07-23 13:00 | XRAY ---
1 minute and 11 seconds fluoroscopy time in surgery for caudal JORGE LUIS.
== END 2021-07-23 11:13 | disposition home or self-care (01) ==
LOC: SDC-PAIN 09:12
PROVIDERS: ATTEND Psychiatry & Neurology Pain Medicine
DX: M54.16 Radiculopathy, lumbar region (principal); M16.12 Unilateral primary osteoarthritis, left hip; E78.5 Hyperlipidemia, unspecified; F32.9 Major depressive disorder, single episode, unspecified; M54.50 Low back pain, unspecified; Z79.899 Other long term (current) drug therapy
CPT/HCPCS: 20610; 62323; 72100; 73501; 77002; 77003; J1030; J2001; J2270; J2704; Q9966

== ENCOUNTER 2021-08-04 07:54 | Emergency (ER) | payer MEDICARE, BC ==
[2021-08-04] MEDS ORDERED: MORPHINE SULFATE 2 MG INJ IV ONE (08:05)
[2021-08-04] MEDS ORDERED: Sodium Chloride 0.9% 1000 ML 1,000 ML IV STA (08:05)
[2021-08-04] MEDS ORDERED: ZOFRAN ODT 4 MG PO ONE (08:05)
[2021-08-04] MEDS ORDERED: ZOFRAN ODT 4 MG ONE (08:17)
[2021-08-04] MEDS ORDERED: MORPHINE SULFATE 2 MG INJ ONE (08:17)
[2021-08-04] MEDS ORDERED: Sodium Chloride 0.9% 1000 ML 1,000 ML ONE (08:17)
[2021-08-04 08:31] LABS: Absolute Neutrophil Ct (ANC) 12.92 (1.4-6.9); BASOPHIL % 0.1 % (0.0-0.4); Basophil (Absolute #) 0.02 (0-0.4); Eosinophil % 0.5 % (0.00-5.0); Eosinophil (Absolute #) 0.07 (0-0.5); Hematocrit 45.5 % (35-47); Hemoglobin 14.4 gm/dl (12.0-16.0); Lymphocyte (Absolute #) 1.32 (1.0-4.6); Lymphocytes % 8.7 % (24.0-44.0); Mean Corpuscular Hemoglobin 28.8 pg (26-32); Mean Corpuscular Hgb Concent. 31.6 g/dl (32-36); Mean Platelet Volume 9.6 fl (7.5-11.0); Monocyte (Absolute #) 0.91 (0.0-1.3); Neutrophil % 84.7 % (36.0-66.0); Platelet Count 268 K/mm3 (150-450); Red Cell Distribution Width 12.3 % (11.5-14.0); White Blood Count 15.2 K/mm3 (4.0-10.5)
[2021-08-04 08:33] LABS: ALBUMIN 4.5 g/dL (3.5-5.0); ALKALINE PHOSPHATASE 85 U/L (38-126); ANION GAP 17.3 MEQ/L (5-15); BLOOD UREA NITROGEN 19 mg/dL (7-17); CHLORIDE 100 mmol/L (98-107); Calcium 10.4 mg/dL (8.4-10.2); Carbon Dioxide 24 mmol/L (22-30); Creatinine 1 0.64 mg/dL (0.52-1.04); EST GLOMERULAR FILTRATION RATE > 60.0 ML/MIN; Glucose 125 mg/dL (74-106); LIPASE 85 U/L (23-300); Potassium 3.8 mmol/L (3.5-5.1); SGOT/AST 18 U/L (14-36); SGPT/ALT 16 U/L (0-35); SODIUM 137 mmol/L (137-145); Total Protein 7.5 g/dL (6.3-8.2)
[2021-08-04 08:38] LABS: Appearance CLEAR (CLEAR); Bilirubin NEGATIVE (NEGATIVE); Blood SMALL Ery/ul (0-5); Glucose NEGATIVE (NEGATIVE); Hyaline Casts 0-2 /LPF (0-2); Ketones NEGATIVE (NEGATIVE); Leukocyte Esterase TRACE (NEGATIVE); Mucus SLIGHT /HPF (NEGATIVE); Nitrite NEGATIVE (NEGATIVE); Protein,Urine Dip NEGATIVE (Negative); RBC 0-2 /HPF (0-2); Specific Gravity 1.013 (1.005-1.025); Urobilinogen NEGATIVE mg/dL (0-1)
[2021-08-04 08:39] LABS: Bacteria FEW /HPF (NEGATIVE); Epithelial Cells RARE /HPF (FEW)
--- NOTE | 2021-08-04 09:06 | XRAY ---
Indication: Right lower quadrant pain. Diarrhea. Multiple contiguous images obtained through the abdomen and pelvis without contrast. Comparison: August 29, 2019. Lung bases demonstrates minimal dependent atelectasis. Stable medial right lower lobe calcified granuloma. Heart not enlarged. Again small hiatal hernia. Again L3-S1 posterior spinal fusion hardware produces beam artifact limiting these levels. Noncontrasted stomach and bowel loops nonobstructed again with normal appendix and mild scattered colonic diverticulosis. No free fluid/air. Again fatty liver and hysterectomy. Remaining liver, gallbladder, pancreas, spleen, adrenal glands, kidneys, ureters, and bladder are unremarkable for noncontrast exam. Again mild aortoiliac calcifications without AAA. Remaining osseous structures intact again with mild degenerative changes throughout the spine. Impression: 1. Stable L3-S1 fusion hardware beam artifact. 2. Stable small hiatal hernia, colonic diverticulosis, and fatty liver. 3. Remaining CT abdomen/pelvis without contrast exam is negative.
--- NOTE | 2021-08-04 09:29 | ERPHSYRPT ---
- History of Present Illness Time Seen by Provider: 08/04/21 08:10 Historian: patient Exam Limitations: no limitations Patient Subjective Stated Complaint: abd pain Triage Nursing Assessment: pt to ED c/o RUQ pain that radiates around to back x 3-4 days. rates 06/22, progressively worsening today. tender to palp. c/o diarrhea onset 0300 today and 1 episode emesis today. denies urinary issues. Physician History: Patient is a 66-year-old female presents to emergency department for evaluation of right upper quadrant pain. Pain has been ongoing for approximately 2 to 3 days. Pain described as an ache that tends to radiate to her back. Patient's gallbladder is intact. No trauma. No fever. +nausea& vomiting. Patient is also experienced diarrhea. symptoms are mild to moderate in intensity. No specific worsening improving factors. Patient voices no other complaints or concerns at this time. Timing/Duration: day(s) (2 to 3 days ago) Activities at Onset: none Quality: aching Abdominal Pain Onset Location: RUQ Pain Radiation: back Severity of Pain-Max: moderate Severity of Pain-Current: mild Modifying Factors: Improves With: nothing Associated Symptoms: denies symptoms Allergies/Adverse Reactions: No Known Drug Allergies Allergy (Verified 08/04/21 08:00) Home Medications: Bupropion HCl [Wellbutrin] 150 mg PO DAILY 12/23/13 [History] Zolpidem Tartrate [Ambien] 10 mg PO HS 12/23/13 [History] Calcium Carb, Cit/Magnesium Ox [Calmag Thins Tablet] 1 each PO DAILY 01/16/16 [History] Oxycodone HCl/Acetaminophen [Oxycodone-Acetaminophen 5-325] 1 each PO Q12H PRN PRN 01/16/16 [History] Psyllium Husk [Fiber] 0.52 gm PO DAILY 01/16/16 [History] Pravastatin Sodium 20 mg PO HS 11/08/17 [History] Cyanocobalamin (Vitamin B-12) [Vitamin B-12] 5,000 mcg PO WEEKLY 04/13/21 [History] Multivitamin [Multi-Vitamin Daily] 1 each PO DAILY 04/13/21 [History] Hx Tetanus, Diphtheria Vaccination/Date Given: Yes Hx Influenza Vaccination/Date Given: Yes Hx Pneumococcal Vaccination/Date Given: No Immunizations Up to Date: Yes Travel Risk - International Travel Have you traveled outside of the country in past 3 weeks: No - Coronavirus Screening Are you exhibiting any of the following symptoms?: Yes Symptoms: Vomiting/Diarrhea Close contact with a COVID-19 positive Pt in past 14-21 Days: No - Vaccine Status Have you recieved a Covid-19 vaccination: Yes [employer] Box [employer]: Moderna - Vaccination Dates Date of 2cond Vaccination (if applicable): november - Review of Systems Constitutional: No Symptoms, No Fever, No Chills Eyes: No Symptoms Ears, Nose, & Throat: No Symptoms Respiratory: No Symptoms, No Cough, No Dyspnea Cardiac: No Symptoms, No Chest Pain, No Edema, No Syncope Abdominal/Gastrointestinal: No Symptoms, No Abdominal Pain, No Nausea, No Vomiting, No Diarrhea Genitourinary Symptoms: No Symptoms, No Dysuria Musculoskeletal: No Symptoms, No Back Pain, No Neck Pain Skin: No Symptoms, No Rash Neurological: No Symptoms, No Dizziness, No Focal Weakness, No Sensory Changes Psychological: No Symptoms Endocrine: No Symptoms Hematologic/Lymphatic: No Symptoms Immunological/Allergic: No Symptoms All Other Systems: Reviewed and Negative - Past Medical History Pertinent Past Medical History: Yes Neurological History: Peripheral Neuropathy ENT History: No Pertinent History Cardiac History: Angina, High Cholesterol Respiratory History: Sleep Apnea Endocrine Medical History: No Pertinent History Musculoskeletal History: Fractures GI Medical History: Diverticulitis History: Other Psycho-Social History: Depression Female Reproductive Disorders: Fibroids Other Medical History: 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 back - Social History Smoking Status: Never smoker Exposure to second hand smoke: No Drug Use: none Patient Lives Alone: No - Nursing Vital Signs Nursing Vital Signs: Initial Vital Signs Temperature 97.5 F 08/04/21 08:00 Pulse Rate 79 08/04/21 08:00 Respiratory Rate 18 08/04/21 08:00 Blood Pressure 168/93 08/04/21 08:00 O2 Sat by Pulse Oximetry 99 08/04/21 08:00 Pain Scale Pain Intensity 10 - Physical Exam General Appearance: no apparent distress, alert Eye Exam: PERRL/EOMI, eyes nml inspection Ears, Nose, Throat Exam: normal ENT inspection, pharynx normal, moist mucous membranes Neck Exam: normal inspection, non-tender, supple, full range of motion Respiratory Exam: normal breath sounds, lungs clear, No respiratory distress Cardiovascular Exam: regular rate/rhythm, normal heart sounds Gastrointestinal/Abdomen Exam: soft, No tenderness, No mass Back Exam: normal inspection, normal range of motion, No CVA tenderness, No vertebral tenderness Extremity Exam: normal inspection, normal range of motion, pelvis stable Neurologic Exam: alert, oriented x 3, cooperative, normal mood/affect, nml cerebellar function, sensation nml, No motor deficits Skin Exam: normal color, warm, dry Lymphatic Exam: No adenopathy SpO2 Interpretation: normal SpO2: 99 O2 Delivery: Room Air - Course Nursing assessment & vital signs reviewed: Yes - CT Exams Abdomen/Pelvis CT Interpretation: Tele-radiologist Report - Radiology Ultrasound Exam Gallbladder Ultrasound: discussed w/radiologist (Per counselor education professor right upper quadrant ultrasound is normal.) Ordered Tests: Active Orders 24 hr Category Date Time Status IV Insertion STAT Care 08/04/21 08:05 Active ABDOMEN AND PELVIS W/0 CONTRAS [CT] Stat Exams 08/04/21 08:05 Completed GALLBLADDER [US] Stat Exams 08/04/21 10:59 Ordered CBC W DIFF Stat Lab 08/04/21 08:15 Completed CMP Stat Lab 08/04/21 08:15 Completed CULTURE,URINE Stat Lab 08/04/21 08:20 Received LIPASE Stat Lab 08/04/21 08:15 Completed TROPONIN Q3H Lab 08/04/21 08:15 Completed TROPONIN Q3H Lab 08/04/21 11:05 Received TROPONIN Q3H Lab 08/04/21 14:15 Ordered TROPONIN Q3H Lab 08/04/21 17:15 Ordered TROPONIN Q3H Lab 08/04/21 20:15 Ordered UA W/RFX UR CULTURE Stat Lab 08/04/21 08:20 Completed Medication Summary Discontinued Medications Generic Name Dose Route Start Last Admin Trade Name Freq PRN Reason Stop Dose Admin Amoxicillin/Clavulanate Potassium 875 mg 08/04/21 10:42 08/04/21 11:21 Amox Tr/Potassium Clavulanate 875 Mg Tablet PO 08/04/21 10:43 875 mg STAT ONE Administration Amoxicillin/Clavulanate Potassium Confirm 08/04/21 11:18 Amox Tr/Potassium Clavulanate 875 Mg Tablet Administered 08/04/21 11:19 Dose 875 mg .ROUTE .STK-MED ONE Sodium Chloride 1,000 mls @ 999 mls/hr 08/04/21 08:05 08/04/21 10:49 Sodium Chloride 0.9% 1000 Ml IV 08/04/21 09:05 Infused .Q1H1M STA Infusion Sodium Chloride Confirm 08/04/21 08:17 Sodium Chloride 0.9% 1000 Ml Administered 08/04/21 08:18 Dose 1,000 mls @ ud .ROUTE .STK-MED ONE Morphine Sulfate 2 mg 08/04/21 08:05 08/04/21 08:19 Morphine Sulfate 2 Mg/Ml Inj IV 08/04/21 08:06 2 mg STAT ONE Administration Morphine Sulfate Confirm 08/04/21 08:17 Morphine Sulfate 2 Mg/Ml Inj Administered 08/04/21 08:18 Dose 2 mg .ROUTE .STK-MED ONE Morphine Sulfate 4 mg 08/04/21 10:53 08/04/21 11:21 Morphine Sulfate 4 Mg/Ml Injection IV 08/04/21 10:54 4 mg STAT ONE Administration Morphine Sulfate Confirm 08/04/21 11:18 Morphine Sulfate 4 Mg/Ml Injection Administered 08/04/21 11:19 Dose 4 mg .ROUTE .STK-MED ONE Ondansetron HCl 4 mg 08/04/21 08:05 08/04/21 08:20 Zofran 4 Mg/Udtablet Orally Disintegrating PO 08/04/21 08:06 4 mg STAT ONE Administration Ondansetron HCl Confirm 08/04/21 08:17 Zofran 4 Mg/Udtablet Orally Disintegrating Administered 08/04/21 08:18 Dose 4 mg .ROUTE .STK-MED ONE Lab/Rad Data: Laboratory Result Diagrams 08/04/21 08:15 08/04/21 08:15 Laboratory Results 08/04/21 08/04/21 08/04/21 Range/Units 08:20 08:15 08:15 WBC (4.0-10.5) K/mm3 RBC (4.1-5.4) M/mm3 Hgb (12.0-16.0) gm/dl Hct (35-47) % MCV (78-100) fl MCH (26-32) pg MCHC (32-36) g/dl RDW (11.5-14.0) % Plt Count (150-450) K/mm3 MPV (7.5-11.0) fl Gran % (36.0-66.0) % Eos # (Auto) (0-0.5) Absolute Lymphs (auto) (1.0-4.6) Absolute Monos (auto) (0.0-1.3) Lymphocytes % (24.0-44.0) % Monocytes % (0.0-12.0) % Eosinophils % (0.00-5.0) % Basophils % (0.0-0.4) % Absolute Granulocytes (1.4-6.9) Basophils # (0-0.4) Sodium 137 (137-145) mmol/L Potassium 3.8 (3.5-5.1) mmol/L Chloride 100 (98-107) mmol/L Carbon Dioxide 24 (22-30) mmol/L Anion Gap 17.3 H (5-15) MEQ/L BUN 19 H (7-17) mg/dL Creatinine 0.64 (0.52-1.04) mg/dL Estimated GFR > 60.0 ML/MIN Glucose 125 H (74-106) mg/dL Calcium 10.4 H (8.4-10.2) mg/dL Total Bilirubin 0.70 (0.2-1.3) mg/dL AST 18 (14-36) U/L ALT 16 (0-35) U/L Alkaline Phosphatase 85 (38-126) U/L Troponin I < 0.012 (0.000-0.034) ng/mL Serum Total Protein 7.5 (6.3-8.2) g/dL Albumin 4.5 (3.5-5.0) g/dL Lipase 85 (23-300) U/L Urine Color YELLOW (YELLOW) Urine Appearance CLEAR (CLEAR) Urine pH 5.0 (5-6) Ur Specific [place] 1.013 (1.005-1.025) Urine Protein NEGATIVE (Negative) Urine Ketones NEGATIVE (NEGATIVE) Urine Blood SMALL (0-5) Nathanael/ul Urine Nitrite NEGATIVE (NEGATIVE) Urine Bilirubin NEGATIVE (NEGATIVE) Urine Urobilinogen NEGATIVE (0-1) mg/dL Ur Leukocyte Esterase TRACE (NEGATIVE) Urine WBC (Auto) 11-15 (0-5) /HPF Urine RBC (Auto) 0-2 (0-2) /HPF U Hyaline Cast (Auto) 0-2 (0-2) /LPF U Epithel Cells (Auto) RARE (FEW) /HPF Urine Bacteria (Auto) FEW (NEGATIVE) /HPF Urine Mucus (Auto) SLIGHT (NEGATIVE) /HPF Urine Culture Reflexed YES (NO) Urine Glucose NEGATIVE (NEGATIVE) mg/dL 08/04/21 Range/Units 08:15 WBC 15.2 H (4.0-10.5) K/mm3 RBC 5.00 (4.1-5.4) M/mm3 Hgb 14.4 (12.0-16.0) gm/dl Hct 45.5 (35-47) % MCV 91.0 (78-100) fl MCH 28.8 (26-32) pg MCHC 31.6 L (32-36) g/dl RDW 12.3 (11.5-14.0) % Plt Count 268 (150-450) K/mm3 MPV 9.6 (7.5-11.0) fl Gran % 84.7 H (36.0-66.0) % Eos # (Auto) 0.07 (0-0.5) Absolute Lymphs (auto) 1.32 (1.0-4.6) Absolute Monos (auto) 0.91 (0.0-1.3) Lymphocytes % 8.7 L (24.0-44.0) % Monocytes % 6.0 (0.0-12.0) % Eosinophils % 0.5 (0.00-5.0) % Basophils % 0.1 (0.0-0.4) % Absolute Granulocytes 12.92 H (1.4-6.9) Basophils # 0.02 (0-0.4) Sodium (137-145) mmol/L Potassium (3.5-5.1) mmol/L Chloride (98-107) mmol/L Carbon Dioxide (22-30) mmol/L Anion Gap (5-15) MEQ/L BUN (7-17) mg/dL Creatinine (0.52-1.04) mg/dL Estimated GFR ML/MIN Glucose (74-106) mg/dL Calcium (8.4-10.2) mg/dL Total Bilirubin (0.2-1.3) mg/dL AST (14-36) U/L ALT (0-35) U/L Alkaline Phosphatase (38-126) U/L Troponin I (0.000-0.034) ng/mL Serum Total Protein (6.3-8.2) g/dL Albumin (3.5-5.0) g/dL Lipase (23-300) U/L Urine Color (YELLOW) Urine Appearance (CLEAR) Urine pH (5-6) Ur Specific [place] (1.005-1.025) Urine Protein (Negative) Urine Ketones (NEGATIVE) Urine Blood (0-5) Nathanael/ul Urine Nitrite (NEGATIVE) Urine Bilirubin (NEGATIVE) Urine Urobilinogen (0-1) mg/dL Ur Leukocyte Esterase (NEGATIVE) Urine WBC (Auto) (0-5) /HPF Urine RBC (Auto) (0-2) /HPF U Hyaline Cast (Auto) (0-2) /LPF U Epithel Cells (Auto) (FEW) /HPF Urine Bacteria (Auto) (NEGATIVE) /HPF Urine Mucus (Auto) (NEGATIVE) /HPF Urine Culture Reflexed (NO) Urine Glucose (NEGATIVE) mg/dL - Progress Progress: improved Progress Note: Work-up reveals a urinary tract infection. CT abdomen pelvis negative for acute intra-abdominal pathology. Lipase negative. Patient received morphine for pain control. We will order a right upper quadrant ultrasound to assess the gallbladder. I discussed the case with Dr. Riojas who will see patient in his office tomorrow 08/04/21 11:01 Discussed with : Yeimi Will see patient in: office (Dr. Riojas see patient in office tomorrow morning.) Counseled pt/family regarding: lab results, diagnosis, need for follow-up, rad results - Departure Departure Disposition: Home Clinical Impression: Lung granuloma, Hiatal hernia, Diverticulosis, Fatty liver, UTI (urinary tract infection) Condition: Stable Critical Care Time: No Referrals: YONI RIOJAS MD [Primary Care Provider] - Follow up/PCP as directed
[2021-08-04] MEDS ORDERED: Augmentin 875-125 Tablet PO ONE (10:42)
[2021-08-04] MEDS ORDERED: MORPHINE SULFATE 4 MG INJ IV ONE (10:53)
[2021-08-04] MEDS ORDERED: MORPHINE SULFATE 4 MG INJ ONE (11:18)
[2021-08-04] MEDS ORDERED: Augmentin 875-125 Tablet ONE (11:18)
--- NOTE | 2021-08-04 11:55 | XRAY ---
Indication: Cholecystitis. Two-dimensional gallbladder sonogram performed. Comparison: March 13, 2019. Nonvisualization pancreas. Gallbladder normally distended again without gallstones, wall thickening, or pericholecystic fluid. Common bile duct measures 3.6 mm. Stable mild diffuse fatty liver. Remaining visualized right kidney sonographically unremarkable. Right kidney measures 11.8 cm in length. No ascites. Impression: Nonvisualization pancreas. Again fatty liver. Remaining gallbladder sonogram is again negative.
[2021-08-04 12:55] LABS: INFLUENZA A NEGATIVE (NEGATIVE); INFLUENZA B NEGATIVE (NEGATIVE); RESPIRATORY SYNCTIAL VIRUS NEGATIVE (Negative); SARS-CoV-2 Xpert Express NEGATIVE (NEGATIVE)
[2021-08-04] MEDS: Sodium Chloride 0.9% 1000 ML 1,000 ML IV SCH (15:21)
[2021-08-04] MEDS: MORPHINE SULFATE 4 MG INJ IV PRN ×2 (15:59→20:50)
[2021-08-04] MEDS ORDERED: PERCOCET TABLET 5/325MG PO PRN (16:03)
[2021-08-04] MEDS ORDERED: NON-FORMULARY ITEM (Cyanocobalamin (Vitamin B-12) [Vitamin B-12] 5,000 MCG Capsule) PO SCH (16:15)
[2021-08-04] MEDS ORDERED: MEDICATION INTERVENTION PO SCH (16:15)
[2021-08-04] MEDS: TYLENOL 325 MG PO PRN ×2 (17:01→20:50)
[2021-08-04] MEDS: THERAGRAN MULTIVITAMIN PO SCH (17:02)
--- NOTE | 2021-08-04 20:32 | PCM.HP ---
History of Present Illness - Chief Complaint Chief Complaint: abdominal painfor 2-3 days History of Present Illness: is a 66 year old female.presents to emergency department for evaluation of right upper quadrant pain. Pain has been ongoing for approximately 2 to 3 days. Pain described as an ache that tends to radiate to her back. Patient's gallbladder is intact. No trauma. No fever. +nausea& vomiting. Patient is also experienced diarrhea. symptoms are mild to moderate in intens ity. No specific worsening improving factors. Patient voices no other complaints or concerns at this time. - Review of Systems Constitutional: No Fever, No Chills Eyes: No Symptoms Ears, Nose, & Throat: No Symptoms Respiratory: No Cough, No Short Of Breath Cardiac: No Chest Pain, No Edema, No Syncope Abdominal/Gastrointestinal: Abdominal Pain, Nausea, Vomiting, No Diarrhea Genitourinary Symptoms: No Dysuria Musculoskeletal: No Back Pain, No Neck Pain Skin: No Rash Neurological: No Dizziness, No Focal Weakness, No Sensory Changes Psychological: No Symptoms Endocrine: No Symptoms Hematologic/Lymphatic: No Symptoms Immunological/Allergic: No Symptoms Medications & Allergies Home Medications: Home Medication List Bupropion HCl [Wellbutrin] 150 mg PO DAILY 12/23/13 [History Confirmed 08/04/21] Zolpidem Tartrate [Ambien] 10 mg PO HS 12/23/13 [History Confirmed 08/04/21] Calcium Carb, Cit/Magnesium Ox [Calmag Thins Tablet] 1 each PO DAILY 01/16/16 [History Confirmed 08/04/21] Oxycodone HCl/Acetaminophen [Oxycodone-Acetaminophen 5-325] 1 each PO Q12H PRN PRN 01/16/16 [History Confirmed 08/04/21] Psyllium Husk [Fiber] 2 tab PO BID 01/16/16 [History Confirmed 08/04/21] Pravastatin Sodium 20 mg PO HS 11/08/17 [History Confirmed 08/04/21] Cyanocobalamin (Vitamin B-12) [Vitamin B-12] 5,000 mcg PO WEEKLY 04/13/21 [History Confirmed 08/04/21] Multivitamin [Multi-Vitamin Daily] 1 each PO DAILY 04/13/21 [History Confirmed 08/04/21] Allergies/Adverse Reactions: Allergies Allergy/AdvReac Type Severity Reaction Status Date / Time No Known Drug Allergies Allergy Verified 08/04/21 08:00 - Past Medical History Past Medical History: Yes Neurological History: Peripheral Neuropathy ENT History: No Pertinent History Cardiac History: Angina, High Cholesterol Respiratory History: Sleep Apnea Endocrine Medical History: No Pertinent History Musculoskelatal History: Fractures GI Medical History: Diverticulitis History: Other Pyscho-Social History: Depression Reproductive Disorders: Fibroids Comment: 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; R ANKLE FX; hx: kidney stone that needed surgical removal (1988); slip and fall that caused back injury needing 4 rods, and 12 screws in F3-F5 - Female History Are you now?: No - Past Surgical History Past Surgical History: Yes Neuro Surgical History: No Pertinent History Cardiac History: Cardiac Catheterization Respiratory Surgery: No Pertinent History GI Surgical History: No Pertinent History Genitourinary Surgical Hx: Kidney Surgery Musculskeletal Surgical Hx: No Pertinent History Female Surgical History: Hysterectomy Other Surgical History: RIGHT ANKLE, KIDNEY STONE REMOVED, TONSILS REMOVED. back. back surgery. - Social History Smoking Status: Never smoker Exposure to second hand smoke: No Alcohol: Occasionally Drug Use: none - Physical Exam Vital Signs: Vital Signs - 24 hr Temp Pulse Resp BP Pulse Ox 08/04/21 19:44 98.7 F 89 16 106/63 94 L 08/04/21 15:28 97.8 F 119 H 22 123/74 94 L 08/04/21 15:05 98 08/04/21 14:41 103 H 18 125/90 98 08/04/21 14:16 116 H 18 125/90 95 08/04/21 13:01 110 H 18 144/70 97 08/04/21 12:00 102 H 20 97 08/04/21 11:49 103.0 F 08/04/21 11:42 99 08/04/21 08:00 97.5 F 79 18 168/93 99 General Appearance: no apparent distress, alert Neurologic Exam: alert, oriented x 3, cooperative, normal mood/affect, nml cerebellar function, nml station & gait, sensation nml, No motor deficits Eye Exam: PERRL/EOMI, eyes nml inspection Ears, Nose, Throat Exam: normal ENT inspection, TMs normal, pharynx normal, moist mucous membranes Neck Exam: normal inspection, non-tender, supple, full range of motion Respiratory Exam: normal breath sounds, lungs clear, No respiratory distress Cardiovascular Exam: regular rate/rhythm, normal heart sounds, normal peripheral pulses Gastrointestinal/Abdomen Exam: soft, normal bowel sounds, No tenderness, No mass Back Exam: normal inspection, normal range of motion, No CVA tenderness, No vertebral tenderness Extremity Exam: normal inspection, normal range of motion, pelvis stable Skin Exam: normal color, warm, dry, No rash Lymphatic Exam: No adenopathy Results - Labs Lab/Micro Results: Lab Results-Last 24 Hours 08/04/21 08/04/21 08/04/21 Range/Units 08:15 08:15 08:15 WBC 15.2 H (4.0-10.5) K/mm3 RBC 5.00 (4.1-5.4) M/mm3 Hgb 14.4 (12.0-16.0) gm/dl Hct 45.5 (35-47) % MCV 91.0 (78-100) fl MCH 28.8 (26-32) pg MCHC 31.6 L (32-36) g/dl RDW 12.3 (11.5-14.0) % Plt Count 268 (150-450) K/mm3 MPV 9.6 (7.5-11.0) fl Gran % 84.7 H (36.0-66.0) % Eos # (Auto) 0.07 (0-0.5) Absolute Lymphs (auto) 1.32 (1.0-4.6) Absolute Monos (auto) 0.91 (0.0-1.3) Lymphocytes % 8.7 L (24.0-44.0) % Monocytes % 6.0 (0.0-12.0) % Eosinophils % 0.5 (0.00-5.0) % Basophils % 0.1 (0.0-0.4) % Absolute Granulocytes 12.92 H (1.4-6.9) Basophils # 0.02 (0-0.4) Sodium 137 (137-145) mmol/L Potassium 3.8 (3.5-5.1) mmol/L Chloride 100 (98-107) mmol/L Carbon Dioxide 24 (22-30) mmol/L Anion Gap 17.3 H (5-15) MEQ/L BUN 19 H (7-17) mg/dL Creatinine 0.64 (0.52-1.04) mg/dL Estimated GFR > 60.0 ML/MIN Glucose 125 H (74-106) mg/dL Calcium 10.4 H (8.4-10.2) mg/dL Total Bilirubin 0.70 (0.2-1.3) mg/dL AST 18 (14-36) U/L ALT 16 (0-35) U/L Alkaline Phosphatase 85 (38-126) U/L Troponin I < 0.012 (0.000-0.034) ng/mL Serum Total Protein 7.5 (6.3-8.2) g/dL Albumin 4.5 (3.5-5.0) g/dL Lipase 85 (23-300) U/L Urine Color (YELLOW) Urine Appearance (CLEAR) Urine pH (5-6) Ur Specific [place] (1.005-1.025) Urine Protein (Negative) Urine Ketones (NEGATIVE) Urine Blood (0-5) Nathanael/ul Urine Nitrite (NEGATIVE) Urine Bilirubin (NEGATIVE) Urine Urobilinogen (0-1) mg/dL Ur Leukocyte Esterase (NEGATIVE) Urine WBC (Auto) (0-5) /HPF Urine RBC (Auto) (0-2) /HPF U Hyaline Cast (Auto) (0-2) /LPF U Epithel Cells (Auto) (FEW) /HPF Urine Bacteria (Auto) (NEGATIVE) /HPF Urine Mucus (Auto) (NEGATIVE) /HPF Urine Culture Reflexed (NO) Urine Glucose (NEGATIVE) mg/dL Influenza Type A Ag (NEGATIVE) Influenza Type B Ag (NEGATIVE) RSV (PCR) (Negative) SARS-CoV-2 (PCR) (NEGATIVE) 08/04/21 08/04/21 08/04/21 Range/Units 08:20 11:05 12:16 WBC (4.0-10.5) K/mm3 RBC (4.1-5.4) M/mm3 Hgb (12.0-16.0) gm/dl Hct (35-47) % MCV (78-100) fl MCH (26-32) pg MCHC (32-36) g/dl RDW (11.5-14.0) % Plt Count (150-450) K/mm3 MPV (7.5-11.0) fl Gran % (36.0-66.0) % Eos # (Auto) (0-0.5) Absolute Lymphs (auto) (1.0-4.6) Absolute Monos (auto) (0.0-1.3) Lymphocytes % (24.0-44.0) % Monocytes % (0.0-12.0) % Eosinophils % (0.00-5.0) % Basophils % (0.0-0.4) % Absolute Granulocytes (1.4-6.9) Basophils # (0-0.4) Sodium (137-145) mmol/L Potassium (3.5-5.1) mmol/L Chloride (98-107) mmol/L Carbon Dioxide (22-30) mmol/L Anion Gap (5-15) MEQ/L BUN (7-17) mg/dL Creatinine (0.52-1.04) mg/dL Estimated GFR ML/MIN Glucose (74-106) mg/dL Calcium (8.4-10.2) mg/dL Total Bilirubin (0.2-1.3) mg/dL AST (14-36) U/L ALT (0-35) U/L Alkaline Phosphatase (38-126) U/L Troponin I < 0.012 (0.000-0.034) ng/mL Serum Total Protein (6.3-8.2) g/dL Albumin (3.5-5.0) g/dL Lipase (23-300) U/L Urine Color YELLOW (YELLOW) Urine Appearance CLEAR (CLEAR) Urine pH 5.0 (5-6) Ur Specific [place] 1.013 (1.005-1.025) Urine Protein NEGATIVE (Negative) Urine Ketones NEGATIVE (NEGATIVE) Urine Blood SMALL (0-5) Nathanael/ul Urine Nitrite NEGATIVE (NEGATIVE) Urine Bilirubin NEGATIVE (NEGATIVE) Urine Urobilinogen NEGATIVE (0-1) mg/dL Ur Leukocyte Esterase TRACE (NEGATIVE) Urine WBC (Auto) 11-15 (0-5) /HPF Urine RBC (Auto) 0-2 (0-2) /HPF U Hyaline Cast (Auto) 0-2 (0-2) /LPF U Epithel Cells (Auto) RARE (FEW) /HPF Urine Bacteria (Auto) FEW (NEGATIVE) /HPF Urine Mucus (Auto) SLIGHT (NEGATIVE) /HPF Urine Culture Reflexed YES (NO) Urine Glucose NEGATIVE (NEGATIVE) mg/dL Influenza Type A Ag NEGATIVE (NEGATIVE) Influenza Type B Ag NEGATIVE (NEGATIVE) RSV (PCR) NEGATIVE (Negative) SARS-CoV-2 (PCR) NEGATIVE (NEGATIVE) 08/04/21 08/04/21 Range/Units 14:15 17:23 WBC (4.0-10.5) K/mm3 RBC (4.1-5.4) M/mm3 Hgb (12.0-16.0) gm/dl Hct (35-47) % MCV (78-100) fl MCH (26-32) pg MCHC (32-36) g/dl RDW (11.5-14.0) % Plt Count (150-450) K/mm3 MPV (7.5-11.0) fl Gran % (36.0-66.0) % Eos # (Auto) (0-0.5) Absolute Lymphs (auto) (1.0-4.6) Absolute Monos (auto) (0.0-1.3) Lymphocytes % (24.0-44.0) % Monocytes % (0.0-12.0) % Eosinophils % (0.00-5.0) % Basophils % (0.0-0.4) % Absolute Granulocytes (1.4-6.9) Basophils # (0-0.4) Sodium (137-145) mmol/L Potassium (3.5-5.1) mmol/L Chloride (98-107) mmol/L Carbon Dioxide (22-30) mmol/L Anion Gap (5-15) MEQ/L BUN (7-17) mg/dL Creatinine (0.52-1.04) mg/dL Estimated GFR ML/MIN Glucose (74-106) mg/dL Calcium (8.4-10.2) mg/dL Total Bilirubin (0.2-1.3) mg/dL AST (14-36) U/L ALT (0-35) U/L Alkaline Phosphatase (38-126) U/L Troponin I < 0.012 < 0.012 (0.000-0.034) ng/mL Serum Total Protein (6.3-8.2) g/dL Albumin (3.5-5.0) g/dL Lipase (23-300) U/L Urine Color (YELLOW) Urine Appearance (CLEAR) Urine pH (5-6) Ur Specific [place] (1.005-1.025) Urine Protein (Negative) Urine Ketones (NEGATIVE) Urine Blood (0-5) Nathanael/ul Urine Nitrite (NEGATIVE) Urine Bilirubin (NEGATIVE) Urine Urobilinogen (0-1) mg/dL Ur Leukocyte Esterase (NEGATIVE) Urine WBC (Auto) (0-5) /HPF Urine RBC (Auto) (0-2) /HPF U Hyaline Cast (Auto) (0-2) /LPF U Epithel Cells (Auto) (FEW) /HPF Urine Bacteria (Auto) (NEGATIVE) /HPF Urine Mucus (Auto) (NEGATIVE) /HPF Urine Culture Reflexed (NO) Urine Glucose (NEGATIVE) mg/dL Influenza Type A Ag (NEGATIVE) Influenza Type B Ag (NEGATIVE) RSV (PCR) (Negative) SARS-CoV-2 (PCR) (NEGATIVE) - Radiology Impressions Radiology Exams & Impressions: Radiology Procedures Category Date Time Status ABDOMEN AND PELVIS W/0 CONTRAS [CT] Stat Exams 08/04/21 08:05 Completed GALLBLADDER [US] Stat Exams 08/04/21 11:44 Completed Assessment/Plan (1) UTI (urinary tract infection) Current Visit: Yes Status: Acute Qualifiers: Urinary tract infection type: acute pyelonephritis Qualified Code(s): N10 - Acute pyelonephritis Assessment & Plan: Chief Complaint Diagnosis abdominal pain Allergies Allergy/AdvReac Type Severity Reaction Status Date / Time No Known Drug Allergies Allergy Verified 08/04/21 08:00 Vital Signs (Last 24 hours) Temp Pulse Resp BP Pulse Ox 08/04/21 19:44 98.7 F 89 16 106/63 94 L 08/04/21 15:28 97.8 F 119 H 22 123/74 94 L 08/04/21 15:05 98 08/04/21 14:41 103 H 18 125/90 98 08/04/21 14:16 116 H 18 125/90 95 08/04/21 13:01 110 H 18 144/70 97 08/04/21 12:00 102 H 20 97 08/04/21 11:49 103.0 F 08/04/21 11:42 99 08/04/21 08:00 97.5 F 79 18 168/93 99 Current Medications Generic Name Dose Route Start Last Admin Trade Name Freq PRN Reason Stop Dose Admin Acetaminophen 650 mg 08/04/21 15:55 08/04/21 17:01 Acetaminophen 325 Mg Tablet PO 09/03/21 15:54 650 mg Q4H PRN PRN Administration PAIN AND/OR FEVER Bupropion HCl 150 mg 08/05/21 10:00 Bupropion Hcl 150 Mg Tablet Xl PO 09/04/21 09:59 DAILY VERA Sodium Chloride 1,000 mls @ 100 mls/hr 08/04/21 15:05 08/04/21 15:21 Sodium Chloride 0.9% 1000 Ml IV 09/03/21 15:04 100 mls/hr .Q10H VERA Administration Miscellaneous Information 1 each 08/04/21 16:15 Medication Intervention 1 Each Each PO 09/03/21 16:14 .RN TO CHECK ON VERA Morphine Sulfate 4 mg 08/04/21 15:05 08/04/21 15:59 Morphine Sulfate 4 Mg/Ml Injection IV 08/09/21 15:04 4 mg Q4H PRN PRN Administration PAIN Multivitamins Therapeutic 1 tab 08/04/21 17:00 08/04/21 17:02 Multivitamins,Therapeutic 1 Tab Tab PO 09/03/21 16:59 1 tab DAILY VERA Administration Oxycodone/Acetaminophen 1 tab 08/04/21 16:03 Oxycodone Hcl/Apap 5 Mg/325 Mg Tablet PO 08/09/21 16:02 Q12H PRN PRN PAIN Simvastatin 20 mg 08/04/21 22:00 Simvastatin 20 Mg Tablet PO 09/03/21 21:59 HS VERA Zolpidem Tartrate 10 mg 08/04/21 22:00 Zolpidem Tartrate 10 Mg Tablet PO 09/03/21 21:59 HS VERA Discontinued Medications Generic Name Dose Route Start Last Admin Trade Name Freq PRN Reason Stop Dose Admin Amoxicillin/Clavulanate Potassium 875 mg 08/04/21 10:42 08/04/21 11:21 Amox Tr/Potassium Clavulanate 875 Mg Tablet PO 08/04/21 10:43 875 mg STAT ONE Administration Amoxicillin/Clavulanate Potassium Confirm 08/04/21 11:18 Amox Tr/Potassium Clavulanate 875 Mg Tablet Administered 08/04/21 11:19 Dose 875 mg .ROUTE .STK-MED ONE Sodium Chloride 1,000 mls @ 999 mls/hr 08/04/21 08:05 08/04/21 10:49 Sodium Chloride 0.9% 1000 Ml IV 08/04/21 09:05 Infused .Q1H1M STA Infusion Sodium Chloride Confirm 08/04/21 08:17 Sodium Chloride 0.9% 1000 Ml Administered 08/04/21 08:18 Dose 1,000 mls @ ud .ROUTE .STK-MED ONE Morphine Sulfate 2 mg 08/04/21 08:05 08/04/21 08:19 Morphine Sulfate 2 Mg/Ml Inj IV 08/04/21 08:06 2 mg STAT ONE Administration Morphine Sulfate Confirm 08/04/21 08:17 Morphine Sulfate 2 Mg/Ml Inj Administered 08/04/21 08:18 Dose 2 mg .ROUTE .STK-MED ONE Morphine Sulfate 4 mg 08/04/21 10:53 08/04/21 11:21 Morphine Sulfate 4 Mg/Ml Injection IV 08/04/21 10:54 4 mg STAT ONE Administration Morphine Sulfate Confirm 08/04/21 11:18 Morphine Sulfate 4 Mg/Ml Injection Administered 08/04/21 11:19 Dose 4 mg .ROUTE .STK-MED ONE Ondansetron HCl 4 mg 08/04/21 08:05 08/04/21 08:20 Zofran 4 Mg/Udtablet Orally Disintegrating PO 08/04/21 08:06 4 mg STAT ONE Administration Ondansetron HCl Confirm 08/04/21 08:17 Zofran 4 Mg/Udtablet Orally Disintegrating Administered 08/04/21 08:18 Dose 4 mg .ROUTE .STK-MED ONE Intake & Output (Last 24 hours) 08/02/21 08/03/21 08/04/21 08/05/21 11:59 11:59 11:59 11:59 Intake Total 520 Output Total 800 Balance -280 Weight 70.307 kg 67.9 kg Microbiology Results (Last 24 hours) 08/04/21 12:30 Blood Blood Culture Gram Stain - Pending 08/04/21 12:30 Blood Blood Culture - Pending 08/04/21 11:55 Blood Blood Culture Gram Stain - Pending 08/04/21 11:55 Blood Blood Culture - Pending 08/04/21 08:20 Urine, Void Urine Culture - Pending Laboratory Results (Last 24 hours) 08/04/21 08/04/21 08/04/21 17:23 14:15 12:16 WBC RBC Hgb Hct MCV MCH MCHC RDW Plt Count MPV Gran % Eos # (Auto) Absolute Lymphs (auto) Absolute Monos (auto) Lymphocytes % Monocytes % Eosinophils % Basophils % Absolute Granulocytes Basophils # Sodium Potassium Chloride Carbon Dioxide Anion Gap BUN Creatinine Estimated GFR Glucose Calcium Total Bilirubin AST ALT Alkaline Phosphatase Troponin I < 0.012 < 0.012 Serum Total Protein Albumin Lipase Urine Color Urine Appearance Urine pH Ur Specific [place] Urine Protein Urine Ketones Urine Blood Urine Nitrite Urine Bilirubin Urine Urobilinogen Ur Leukocyte Esterase Urine WBC (Auto) Urine RBC (Auto) U Hyaline Cast (Auto) U Epithel Cells (Auto) Urine Bacteria (Auto) Urine Mucus (Auto) Urine Culture Reflexed Urine Glucose Influenza Type A Ag NEGATIVE Influenza Type B Ag NEGATIVE RSV (PCR) NEGATIVE SARS-CoV-2 (PCR) NEGATIVE 08/04/21 08/04/21 08/04/21 11:05 08:20 08:15 WBC RBC Hgb Hct MCV MCH MCHC RDW Plt Count MPV Gran % Eos # (Auto) Absolute Lymphs (auto) Absolute Monos (auto) Lymphocytes % Monocytes % Eosinophils % Basophils % Absolute Granulocytes Basophils # Sodium Potassium Chloride Carbon Dioxide Anion Gap BUN Creatinine Estimated GFR Glucose Calcium Total Bilirubin AST ALT Alkaline Phosphatase Troponin I < 0.012 < 0.012 Serum Total Protein Albumin Lipase Urine Color YELLOW Urine Appearance CLEAR Urine pH 5.0 Ur Specific [place] 1.013 Urine Protein NEGATIVE Urine Ketones NEGATIVE Urine Blood SMALL Urine Nitrite NEGATIVE Urine Bilirubin NEGATIVE Urine Urobilinogen NEGATIVE Ur Leukocyte Esterase TRACE Urine WBC (Auto) 11-15 Urine RBC (Auto) 0-2 U Hyaline Cast (Auto) 0-2 U Epithel Cells (Auto) RARE Urine Bacteria (Auto) FEW Urine Mucus (Auto) SLIGHT Urine Culture Reflexed YES Urine Glucose NEGATIVE Influenza Type A Ag Influenza Type B Ag RSV (PCR) SARS-CoV-2 (PCR) 08/04/21 08/04/21 08:15 08:15 WBC 15.2 H RBC 5.00 Hgb 14.4 Hct 45.5 MCV 91.0 MCH 28.8 MCHC 31.6 L RDW 12.3 Plt Count 268 MPV 9.6 Gran % 84.7 H Eos # (Auto) 0.07 Absolute Lymphs (auto) 1.32 Absolute Monos (auto) 0.91 Lymphocytes % 8.7 L Monocytes % 6.0 Eosinophils % 0.5 Basophils % 0.1 Absolute Granulocytes 12.92 H Basophils # 0.02 Sodium 137 Potassium 3.8 Chloride 100 Carbon Dioxide 24 Anion Gap 17.3 H BUN 19 H Creatinine 0.64 Estimated GFR > 60.0 Glucose 125 H Calcium 10.4 H Total Bilirubin 0.70 AST 18 ALT 16 Alkaline Phosphatase 85 Troponin I Serum Total Protein 7.5 Albumin 4.5 Lipase 85 Urine Color Urine Appearance Urine pH Ur Specific [place] Urine Protein Urine Ketones Urine Blood Urine Nitrite Urine Bilirubin Urine Urobilinogen Ur Leukocyte Esterase Urine WBC (Auto) Urine RBC (Auto) U Hyaline Cast (Auto) U Epithel Cells (Auto) Urine Bacteria (Auto) Urine Mucus (Auto) Urine Culture Reflexed Urine Glucose Influenza Type A Ag Influenza Type B Ag RSV (PCR) SARS-CoV-2 (PCR) Orders (Last 24 hours) Category Date Time Status Bedrest with BRP/BSC ROUTINE Activity 08/04/21 15:05 Active Code Status Order ROUTINE Care 08/04/21 15:05 Active IV Care Q6H Care 08/04/21 15:05 Active IV Insertion STAT Care 08/04/21 08:[address] in Observation ROUTINE Care 08/04/21 15:05 Active Telemetry q6h Care 08/04/21 16:26 Active Clear Liquid Diet 08/04/21 Dinner Active ABDOMEN AND PELVIS W/0 CONTRAS [CT] Stat Exams 08/04/21 08:05 Completed GALLBLADDER [US] Stat Exams 08/04/21 11:44 Completed BLOOD CULTURE Stat Lab 08/04/21 12:30 Received CBC W DIFF AM.LAB Lab 08/05/21 04:00 Ordered CBC W DIFF Stat Lab 08/04/21 08:15 Completed CMP AM.LAB Lab 08/05/21 04:00 Ordered CMP Stat Lab 08/04/21 08:15 Completed CULTURE,URINE Stat Lab 08/04/21 08:20 Received LIPASE Stat Lab 08/04/21 08:15 Completed TROPONIN Q3H Lab 08/04/21 08:15 Completed TROPONIN Q3H Lab 08/04/21 11:05 Completed TROPONIN Q3H Lab 08/04/21 14:15 Completed TROPONIN Q3H Lab 08/04/21 17:23 Completed UA W/RFX UR CULTURE Stat Lab 08/04/21 08:20 Completed Acetaminophen 325 mg [Tylenol 325 mg] Med 08/04/21 15:55 Active 650 mg PO Q4H PRN PRN Amox Tr/Potass Clav. 875 mg [Augmentin 875-125 Med 08/04/21 11:18 Discontinued Tablet] 875 mg .ROUTE .STK-MED ONE Amox Tr/Potass Clav. 875 mg [Augmentin 875-125 Med 08/04/21 10:42 Discontinued Tablet] 875 mg PO STAT ONE Bupropion HCl Xl 150 mg [Wellbutrin XL 150 MG] Med 08/05/21 10:00 Active 150 mg PO DAILY Medication Intervention Med 08/04/21 16:15 Active 1 each PO .RN TO CHECK ON Morphine Sulfate 2 mg Inj Med 08/04/21 08:17 Discontinued 2 mg .ROUTE .STK-MED ONE Morphine Sulfate 2 mg Inj Med 08/04/21 08:05 Discontinued 2 mg IV STAT ONE Morphine Sulfate 4 mg Inj Med 08/04/21 11:18 Discontinued 0 mg .ROUTE .STK-MED ONE Morphine Sulfate 4 mg Inj Med 08/04/21 15:05 Active 4 mg IV Q4H PRN PRN Morphine Sulfate 4 mg Inj Med 08/04/21 10:53 Discontinued 4 mg IV STAT ONE Multivitamins,Therapeutic Tab* [Theragran Multivitamin* Med 08/04/21 17:00 Active ] 1 tab PO DAILY NaCl 0.9% 1000 ml [Sodium Chloride 0.9% 1000 ML] 1,000 Med 08/04/21 08:17 Discontinued ml .ROUTE UD NaCl 0.9% 1000 ml [Sodium Chloride 0.9% 1000 ML] 1,000 Med 08/04/21 15:05 Active ml IV 100 mls/hr NaCl 0.9% 1000 ml [Sodium Chloride 0.9% 1000 ML] 1,000 Med 08/04/21 08:05 Discontinued ml IV 999 mls/hr Ondansetron ODT 4 MG [Zofran Odt 4 mg] Med 08/04/21 08:17 Discontinued 4 mg .ROUTE .STK-MED ONE Ondansetron ODT 4 MG [Zofran Odt 4 mg] Med 08/04/21 08:05 Discontinued 4 mg PO STAT ONE Oxycodone/APAP 5 mg/325 mg [Percocet Tablet 5/325Mg Med 08/04/21 16:03 Active *] 1 tab PO Q12H PRN PRN Simvastatin 20Mg [Zocor 20Mg] Med 08/04/21 22:00 Active 20 mg PO HS Zolpidem Tartrate 10 mg [Ambien 10 MG] Med 08/04/21 22:00 Active 10 mg PO HS Pulse Oximetry CONTINUOUS RT 08/04/21 15:05 Completed Transfer Order Routine Transfer 08/04/21 Completed Patient Care Notes (Last 24 hours) 08/04/21 15:55 SBAR Note by Katerina Keller SITUATION I am calling about SHRAVAN MCCOY the patient's code status is Full Code The problem I am calling about is: Called Dr Preciado regarding pt's home med list. Received new orders. ASSESSMENT RECOMMENDATION Physician notified at 1555 New Orders received: Vital Signs (Last 4 hours) Temp Pulse Resp BP Pulse Ox 08/04/21 15:28 97.8 F 119 H 22 123/74 94 L 08/04/21 15:05 98 08/04/21 14:41 103 H 18 125/90 98 08/04/21 14:16 116 H 18 125/90 95 08/04/21 13:01 110 H 18 144/70 97 08/04/21 12:00 102 H 20 97 Diagnois, Code Status Date of Arrival on Unit 08/04/21 Admitted From Emergency Dept Diagnosis abdominal pain Resucitation Status Full Code Intake and Output 12 Hours 08/04/21 08/04/21 06:59 18:59 Weight 67.9 kg Physical Assessment Mental Status Alert Patient Orientation Person,Place,Time Coma Scale Total 15 Breath Sounds [Anterior/ Clear Posterior Bilateral Throughout ] Bowel Sounds [All Quadrants] Hypoactive Abdomen Description Soft,Tender Urine Appearance Not Voided Skin Color [place] Skin Temperature Warm Pain Scale (Last 12 Hours) Pain Intensity 4 Pain Intensity 5 Pain Intensity 5 Pain Intensity 5 Pain Intensity 5 Pain Intensity 5 Pain Intensity 5 Pain Intensity 5 Pain Intensity 5 Pain Intensity 5 Pain Intensity 5 Pain Intensity 5 Pain Intensity 5 Pain Intensity 10 Pain Intensity 10 Pain Intensity 10 Pain Intensity 10 PAST MEDICAL HISTORY Neurological History Peripheral Neuropathy ENT History No Pertinent History Endocrine Medical History No Pertinent History Respiratory History Sleep Apnea Cardiac History Angina,High Cholesterol GI Medical History Diverticulitis History Other Reproductive Disorders Fibroids Pyscho-Social History Depression Communicable Disease No Pertinent History Comment 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; R ANKLE FX; hx: kidney stone that needed surgical removal (1988); slip and fall that caused back injury needing 4 rods , and 12 screws in F3-F5 Diet Order (Last 12 Hours) 08/04/21 Dinner Clear Liquid Lab Results (Last 12 Hours) 08/04/21 08/04/21 08/04/21 Range/Units 14:15 12:16 11:05 WBC (4.0-10.5) K/mm3 RBC (4.1-5.4) M/mm3 Hgb (12.0-16.0) gm/dl Hct (35-47) % MCV (78-100) fl MCH (26-32) pg MCHC (32-36) g/dl RDW (11.5-14.0) % Plt Count (150-450) K/mm3 MPV (7.5-11.0) fl Gran % (36.0-66.0) % Eos # (Auto) (0-0.5) Absolute Lymphs (auto) (1.0-4.6) Absolute Monos (auto) (0.0-1.3) Lymphocytes % (24.0-44.0) % Monocytes % (0.0-12.0) % Eosinophils % (0.00-5.0) % Basophils % (0.0-0.4) % Absolute Granulocytes (1.4-6.9) Basophils # (0-0.4) Sodium (137-145) mmol/L Potassium (3.5-5.1) mmol/L Chloride (98-107) mmol/L Carbon Dioxide (22-30) mmol/L Anion Gap (5-15) MEQ/L BUN (7-17) mg/dL Creatinine (0.52-1.04) mg/dL Estimated GFR ML/MIN Glucose (74-106) mg/dL Calcium (8.4-10.2) mg/dL Total Bilirubin (0.2-1.3) mg/dL AST (14-36) U/L ALT (0-35) U/L Alkaline Phosphatase (38-126) U/L Troponin I < 0.012 < 0.012 (0.000-0.034) ng/mL Serum Total Protein (6.3-8.2) g/dL Albumin (3.5-5.0) g/dL Lipase (23-300) U/L Urine Color (YELLOW) Urine Appearance (CLEAR) Urine pH (5-6) Ur Specific [place] (1.005-1.025) Urine Protein (Negative) Urine Ketones (NEGATIVE) Urine Blood (0-5) Nathanael/ul Urine Nitrite (NEGATIVE) Urine Bilirubin (NEGATIVE) Urine Urobilinogen (0-1) mg/dL Ur Leukocyte Esterase (NEGATIVE) Urine WBC (Auto) (0-5) /HPF Urine RBC (Auto) (0-2) /HPF U Hyaline Cast (Auto) (0-2) /LPF U Epithel Cells (Auto) (FEW) /HPF Urine Bacteria (Auto) (NEGATIVE) /HPF Urine Mucus (Auto) (NEGATIVE) /HPF Urine Culture Reflexed (NO) Urine Glucose (NEGATIVE) mg/dL Influenza Type A Ag NEGATIVE (NEGATIVE) Influenza Type B Ag NEGATIVE (NEGATIVE) RSV (PCR) NEGATIVE (Negative) SARS-CoV-2 (PCR) NEGATIVE (NEGATIVE) 08/04/21 08/04/21 08/04/21 Range/Units 08:20 08:15 08:15 WBC (4.0-10.5) K/mm3 RBC (4.1-5.4) M/mm3 Hgb (12.0-16.0) gm/dl Hct (35-47) % MCV (78-100) fl MCH (26-32) pg MCHC (32-36) g/dl RDW (11.5-14.0) % Plt Count (150-450) K/mm3 MPV (7.5-11.0) fl Gran % (36.0-66.0) % Eos # (Auto) (0-0.5) Absolute Lymphs (auto) (1.0-4.6) Absolute Monos (auto) (0.0-1.3) Lymphocytes % (24.0-44.0) % Monocytes % (0.0-12.0) % Eosinophils % (0.00-5.0) % Basophils % (0.0-0.4) % Absolute Granulocytes (1.4-6.9) Basophils # (0-0.4) Sodium 137 (137-145) mmol/L Potassium 3.8 (3.5-5.1) mmol/L Chloride 100 (98-107) mmol/L Carbon Dioxide 24 (22-30) mmol/L Anion Gap 17.3 H (5-15) MEQ/L BUN 19 H (7-17) mg/dL Creatinine 0.64 (0.52-1.04) mg/dL Estimated GFR > 60.0 ML/MIN Glucose 125 H (74-106) mg/dL Calcium 10.4 H (8.4-10.2) mg/dL Total Bilirubin 0.70 (0.2-1.3) mg/dL AST 18 (14-36) U/L ALT 16 (0-35) U/L Alkaline Phosphatase 85 (38-126) U/L Troponin I < 0.012 (0.000-0.034) ng/mL Serum Total Protein 7.5 (6.3-8.2) g/dL Albumin 4.5 (3.5-5.0) g/dL Lipase 85 (23-300) U/L Urine Color YELLOW (YELLOW) Urine Appearance CLEAR (CLEAR) Urine pH 5.0 (5-6) Ur Specific [place] 1.013 (1.005-1.025) Urine Protein NEGATIVE (Negative) Urine Ketones NEGATIVE (NEGATIVE) Urine Blood SMALL (0-5) Nathanael/ul Urine Nitrite NEGATIVE (NEGATIVE) Urine Bilirubin NEGATIVE (NEGATIVE) Urine Urobilinogen NEGATIVE (0-1) mg/dL Ur Leukocyte Esterase TRACE (NEGATIVE) Urine WBC (Auto) 11-15 (0-5) /HPF Urine RBC (Auto) 0-2 (0-2) /HPF U Hyaline Cast (Auto) 0-2 (0-2) /LPF U Epithel Cells (Auto) RARE (FEW) /HPF Urine Bacteria (Auto) FEW (NEGATIVE) /HPF Urine Mucus (Auto) SLIGHT (NEGATIVE) /HPF Urine Culture Reflexed YES (NO) Urine Glucose NEGATIVE (NEGATIVE) mg/dL Influenza Type A Ag (NEGATIVE) Influenza Type B Ag (NEGATIVE) RSV (PCR) (Negative) SARS-CoV-2 (PCR) (NEGATIVE) 08/04/21 Range/Units 08:15 WBC 15.2 H (4.0-10.5) K/mm3 RBC 5.00 (4.1-5.4) M/mm3 Hgb 14.4 (12.0-16.0) gm/dl Hct 45.5 (35-47) % MCV 91.0 (78-100) fl MCH 28.8 (26-32) pg MCHC 31.6 L (32-36) g/dl RDW 12.3 (11.5-14.0) % Plt Count 268 (150-450) K/mm3 MPV 9.6 (7.5-11.0) fl Gran % 84.7 H (36.0-66.0) % Eos # (Auto) 0.07 (0-0.5) Absolute Lymphs (auto) 1.32 (1.0-4.6) Absolute Monos (auto) 0.91 (0.0-1.3) Lymphocytes % 8.7 L (24.0-44.0) % Monocytes % 6.0 (0.0-12.0) % Eosinophils % 0.5 (0.00-5.0) % Basophils % 0.1 (0.0-0.4) % Absolute Granulocytes 12.92 H (1.4-6.9) Basophils # 0.02 (0-0.4) Sodium (137-145) mmol/L Potassium (3.5-5.1) mmol/L Chloride (98-107) mmol/L Carbon Dioxide (22-30) mmol/L Anion Gap (5-15) MEQ/L BUN (7-17) mg/dL Creatinine (0.52-1.04) mg/dL Estimated GFR ML/MIN Glucose (74-106) mg/dL Calcium (8.4-10.2) mg/dL Total Bilirubin (0.2-1.3) mg/dL AST (14-36) U/L ALT (0-35) U/L Alkaline Phosphatase (38-126) U/L Troponin I (0.000-0.034) ng/mL Serum Total Protein (6.3-8.2) g/dL Albumin (3.5-5.0) g/dL Lipase (23-300) U/L Urine Color (YELLOW) Urine Appearance (CLEAR) Urine pH (5-6) Ur Specific [place] (1.005-1.025) Urine Protein (Negative) Urine Ketones (NEGATIVE) Urine Blood (0-5) Nathanael/ul Urine Nitrite (NEGATIVE) Urine Bilirubin (NEGATIVE) Urine Urobilinogen (0-1) mg/dL Ur Leukocyte Esterase (NEGATIVE) Urine WBC (Auto) (0-5) /HPF Urine RBC (Auto) (0-2) /HPF U Hyaline Cast (Auto) (0-2) /LPF U Epithel Cells (Auto) (FEW) /HPF Urine Bacteria (Auto) (NEGATIVE) /HPF Urine Mucus (Auto) (NEGATIVE) /HPF Urine Culture Reflexed (NO) Urine Glucose (NEGATIVE) mg/dL Influenza Type A Ag (NEGATIVE) Influenza Type B Ag (NEGATIVE) RSV (PCR) (Negative) SARS-CoV-2 (PCR) (NEGATIVE) Microbiology Results (Last 12 Hours) 08/04/21 12:30 Blood Culture Gram Stain - Pending Blood Blood Culture - Pending 08/04/21 11:55 Blood Culture Gram Stain - Pending Blood Blood Culture - Pending 08/04/21 08:20 Urine Culture - Pending Urine, Void Orders (Last 12 Hours) Category Date Time Status Bedrest with BRP/BSC ROUTINE Activity 08/04/21 15:05 Active Code Status Order ROUTINE Care 08/04/21 15:05 Active IV Care Q6H Care 08/04/21 15:[address] in Observation ROUTINE Care 08/04/21 15:05 Active Clear Liquid Diet 08/04/21 Dinner Active BLOOD CULTURE Stat Lab 08/04/21 12:30 Received CBC W DIFF AM.LAB Lab 08/05/21 04:00 Ordered CMP AM.LAB Lab 08/05/21 04:00 Ordered CULTURE,URINE Stat Lab 08/04/21 08:20 Received TROPONIN Q3H Lab 08/04/21 17:15 Ordered TROPONIN Q3H Lab 08/04/21 20:15 Ordered Morphine Sulfate 4 mg Inj Med 08/04/21 15:05 Active 4 mg IV Q4H PRN PRN NaCl 0.9% 1000 ml [Sodium Chloride 0.9% 1000 ML] 1,000 Med 08/04/21 15:05 Active ml IV 100 mls/hr Active Visit Medications Generic Name Dose Route Start Last Admin Trade Name Freq PRN Reason Stop Dose Admin Sodium Chloride 1,000 mls @ 100 mls/hr 08/04/21 15:05 08/04/21 15:21 Sodium Chloride 0.9% 1000 Ml IV 09/03/21 15:04 100 mls/hr .Q10H VERA Administration Morphine Sulfate 4 mg 08/04/21 15:05 Morphine Sulfate 4 Mg/Ml Injection IV 08/09/21 15:04 Q4H PRN PRN PAIN Code(s): N39.0 - URINARY TRACT INFECTION, SITE NOT SPECIFIED (2) Diverticulosis Current Visit: Yes Status: Acute Code(s): K57.90 - DVRTCLOS OF INTEST, PART UNSP, W/O PERF OR ABSCESS W/O BLEED (3) Fatty liver Current Visit: Yes Status: Acute Code(s): K76.0 - FATTY (CHANGE OF) LIVER, NOT ELSEWHERE CLASSIFIED
[2021-08-04] MEDS: ZOCOR 20MG PO SCH (20:50)
[2021-08-04] MEDS: Ambien 10 MG PO SCH ×2 (21:21→23:40)
[2021-08-04] MEDS ORDERED: PSYLLIUM HUSK 0.52 GM PO SCH (22:00)
[2021-08-04] MEDS ORDERED: FIBERCON 625 MG PO SCH (22:00)
[2021-08-04] MEDS ORDERED: ROCEPHIN 1 Gm-D5w 50 ml Bag** 1 G/50 ML IVPB IV SCH (22:00)
[2021-08-04] MEDS ORDERED: NON-FORMULARY ITEM (Pravastatin Sodium [Pravastatin Sodium] 20 MG Tablet) PO SCH (22:00)
[2021-08-05] MEDS: Sodium Chloride 0.9% 1000 ML 1,000 ML IV SCH ×2 (02:01→21:37)
[2021-08-05 05:49] LABS: Absolute Neutrophil Ct (ANC) 12.79 (1.4-6.9); BASOPHIL % 0.1 % (0.0-0.4); Basophil (Absolute #) 0.01 (0-0.4); Eosinophil % 0.5 % (0.00-5.0); Eosinophil (Absolute #) 0.07 (0-0.5); Hematocrit 39.7 % (35-47); Hemoglobin 12.5 gm/dl (12.0-16.0); Lymphocyte (Absolute #) 1.16 (1.0-4.6); Lymphocytes % 7.8 % (24.0-44.0); Mean Cell Volume 92.5 fl (78-100); Mean Corpuscular Hemoglobin 29.1 pg (26-32); Mean Corpuscular Hgb Concent. 31.5 g/dl (32-36); Mean Platelet Volume 9.6 fl (7.5-11.0); Monocyte (Absolute #) 0.86 (0.0-1.3); Monocytes % 5.8 % (0.0-12.0); Neutrophil % 85.8 % (36.0-66.0); Platelet Count 220 K/mm3 (150-450); Red Blood Count 4.29 M/mm3 (4.1-5.4); Red Cell Distribution Width 12.4 % (11.5-14.0); White Blood Count 14.9 K/mm3 (4.0-10.5)
[2021-08-05 06:27] LABS: ALBUMIN 3.5 g/dL (3.5-5.0); ALKALINE PHOSPHATASE 65 U/L (38-126); ANION GAP 11.1 MEQ/L (5-15); BLOOD UREA NITROGEN 9 mg/dL (7-17); CHLORIDE 105 mmol/L (98-107); Calcium 9.2 mg/dL (8.4-10.2); Carbon Dioxide 27 mmol/L (22-30); Creatinine 1 0.61 mg/dL (0.52-1.04); EST GLOMERULAR FILTRATION RATE > 60.0 ML/MIN; Glucose 109 mg/dL (74-106); Potassium 4.1 mmol/L (3.5-5.1); SGOT/AST 14 U/L (14-36); SGPT/ALT 13 U/L (0-35); SODIUM 139 mmol/L (137-145); Total Protein 6.3 g/dL (6.3-8.2)
[2021-08-05] MEDS: TYLENOL 325 MG PO PRN ×2 (08:19→12:26)
[2021-08-05] MEDS: Wellbutrin XL 150 MG PO SCH (08:20)
[2021-08-05] MEDS: THERAGRAN MULTIVITAMIN PO SCH (08:20)
[2021-08-05] MEDS ORDERED: MAGNESIUM OX PO SCH (10:00)
[2021-08-05] MEDS ORDERED: BUPROPION HCL 100 MG PO SCH (10:00)
[2021-08-05] MEDS ORDERED: CALCIUM CARB CIT PO SCH (10:00)
[2021-08-05] MEDS ORDERED: NON-FORMULARY ITEM (Multivitamin [Multi-Vitamin Daily] 1 EACH Tablet) PO SCH (10:00)
--- NOTE | 2021-08-05 17:41 | PCM.NOTE ---
Date and Time: 08/05/211740 Subjective Assessment: doing better - Review of Systems Constitutional: No Fever, No Chills Eyes: No Symptoms Ears, Nose, & Throat: No Symptoms Respiratory: No Cough, No Short Of Breath Cardiac: No Chest Pain, No Edema, No Syncope Abdominal/Gastrointestinal: No Abdominal Pain, No Nausea, No Vomiting, No Diarrhea Genitourinary Symptoms: No Dysuria Musculoskeletal: No Back Pain, No Neck Pain Skin: No Rash Neurological: No Dizziness, No Focal Weakness, No Sensory Changes Psychological: No Symptoms Endocrine: No Symptoms Hematologic/Lymphatic: No Symptoms Immunological/Allergic: No Symptoms Objective Exam General Appearance: no apparent distress, alert Neurologic Exam: alert, oriented x 3, cooperative, normal mood/affect, nml cerebellar function, sensation nml, No motor deficits Skin Exam: normal color, warm, dry Eye Exam: PERRL, EOMI, eyes nml inspection Ears, Nose, Throat Exam: normal ENT inspection, pharynx normal, moist mucous membranes Neck Exam: normal inspection, non-tender, supple, full range of motion Respiratory Exam: normal breath sounds, lungs clear, No respiratory distress Cardiovascular Exam: regular rate/rhythm, normal heart sounds Gastrointestinal/Abdomen Exam: soft, No tenderness, No mass Extremity Exam: normal inspection, normal range of motion Back Exam: normal inspection, normal range of motion, No CVA tenderness, No vertebral tenderness Pelvic Exam: deferred Rectal Exam: deferred OBJECTIVE DATA Vital Signs: Vital Signs - 24 hr Temp Pulse Resp BP Pulse Ox 08/05/21 16:00 97.1 F 83 16 112/62 95 08/05/21 12:00 97.5 F 78 16 118/79 99 08/05/21 06:42 97.8 F 83 16 109/63 94 L 08/05/21 04:00 97.5 F 78 16 123/64 97 08/04/21 23:50 97.5 F 77 16 106/65 94 L 08/04/21 20:49 98.9 F 08/04/21 19:44 98.7 F 89 16 106/63 94 L Pain Assessment - Last Documented Pain Intensity 0 Pain Scale Used 0-10 Pain Scale Intake and Output: Intake & Output 08/03/21 08/04/21 08/05/21 08/06/21 11:59 11:59 11:59 11:59 Intake Total 1350 Output Total 1300 Balance 50 Weight 70.307 kg 67.9 kg Lab Results: Lab Results-Last 24 Hours 08/04/21 08/05/21 08/05/21 Range/Units 17:23 05:00 05:00 WBC 14.9 H (4.0-10.5) K/mm3 RBC 4.29 (4.1-5.4) M/mm3 Hgb 12.5 (12.0-16.0) gm/dl Hct 39.7 (35-47) % MCV 92.5 (78-100) fl MCH 29.1 (26-32) pg MCHC 31.5 L (32-36) g/dl RDW 12.4 (11.5-14.0) % Plt Count 220 (150-450) K/mm3 MPV 9.6 (7.5-11.0) fl Gran % 85.8 H (36.0-66.0) % Eos # (Auto) 0.07 (0-0.5) Absolute Lymphs (auto) 1.16 (1.0-4.6) Absolute Monos (auto) 0.86 (0.0-1.3) Lymphocytes % 7.8 L (24.0-44.0) % Monocytes % 5.8 (0.0-12.0) % Eosinophils % 0.5 (0.00-5.0) % Basophils % 0.1 (0.0-0.4) % Absolute Granulocytes 12.79 H (1.4-6.9) Basophils # 0.01 (0-0.4) Sodium 139 (137-145) mmol/L Potassium 4.1 (3.5-5.1) mmol/L Chloride 105 (98-107) mmol/L Carbon Dioxide 27 (22-30) mmol/L Anion Gap 11.1 (5-15) MEQ/L BUN 9 (7-17) mg/dL Creatinine 0.61 (0.52-1.04) mg/dL Estimated GFR > 60.0 ML/MIN Glucose 109 H (74-106) mg/dL Calcium 9.2 (8.4-10.2) mg/dL Total Bilirubin 0.60 (0.2-1.3) mg/dL AST 14 (14-36) U/L ALT 13 (0-35) U/L Alkaline Phosphatase 65 (38-126) U/L Troponin I < 0.012 (0.000-0.034) ng/mL Serum Total Protein 6.3 (6.3-8.2) g/dL Albumin 3.5 (3.5-5.0) g/dL Radiology Exams: Radiology Procedures Category Date Time Status ABDOMEN AND PELVIS W/0 CONTRAS [CT] Stat Exams 08/04/21 08:05 Completed GALLBLADDER [US] Stat Exams 08/04/21 11:44 Completed Multi-Disciplinary Progress Notes: Multi-Disciplinary Progress Notes 08/05/21 13:21 Case Management Note by Suzanne Calixto ROUNDED WITH DR. RIOJAS EARLIER TODAY- PATIENT ON ROCEPHIN FOR PYELONEPHRITIS. PATIENT TO GET ANOTHER DOSE OF ROCEPHIN THIS PM. PATENT CAN THEN DC HOME TOMORROW AM ON CIPRO Initialized on 08/05/21 13:21 - END OF NOTE Assessment/Plan (1) UTI (urinary tract infection) Current Visit: Yes Status: Acute Qualifiers: Urinary tract infection type: acute pyelonephritis Qualified Code(s): N10 - Acute pyelonephritis Code(s): N39.0 - URINARY TRACT INFECTION, SITE NOT SPECIFIED (2) Diverticulosis Current Visit: Yes Status: Acute Code(s): K57.90 - DVRTCLOS OF INTEST, PART UNSP, W/O PERF OR ABSCESS W/O BLEED (3) Fatty liver Current Visit: Yes Status: Acute Code(s): K76.0 - FATTY (CHANGE OF) LIVER, NOT ELSEWHERE CLASSIFIED
[2021-08-05] MEDS: MORPHINE SULFATE 4 MG INJ IV PRN (18:25)
[2021-08-05] MEDS: ZOCOR 20MG PO SCH (21:31)
[2021-08-05] MEDS: Ambien 10 MG PO SCH (21:31)
[2021-08-05] MEDS ORDERED: ROCEPHIN 1 Gm-D5w 50 ml Bag** 1 G/50 ML IVPB IV SCH (22:00)
[2021-08-06 04:36] VITALS: O2SAT 95
[2021-08-06 09:31] VITALS: BP 131/75; PULSE 75
[2021-08-06] MEDS: Wellbutrin XL 150 MG PO SCH (09:40)
[2021-08-06] MEDS: THERAGRAN MULTIVITAMIN PO SCH (09:40)
--- NOTE | 2021-08-06 10:50 | PCM.DS ---
Discharge Summary Date of Admission: 08/04/21 14:47 Admitting Physician: YONI RIOJAS Primary Care Provider: YONI RIOJAS Allergies Allergies No Known Drug Allergies Allergy (Verified 08/04/21 08:00) Hospital Summary - Hospital Course Hospital Course: Chief Complaint Diagnosis abdominal painfor 2-3 days Allergies Allergy/AdvReac Type Severity Reaction Status Date / Time No Known Drug Allergies Allergy Verified 08/04/21 08:00 Vital Signs (Last 24 hours) Temp Pulse Resp BP Pulse Ox 08/06/21 08:00 97.7 F 75 16 131/75 95 08/06/21 04:00 97.3 F 77 18 122/71 95 08/06/21 00:00 98.9 F 82 18 119/72 94 L 08/05/21 20:00 97.1 F 79 18 129/75 95 08/05/21 16:00 97.1 F 83 16 112/62 95 08/05/21 12:00 97.5 F 78 16 118/79 99 Home Medications Medication Instructions Recorded Confirmed Last Taken Type Ciprofloxacin [Cipro 500 MG] 500 mg PO BID #20 tablet 08/05/21 Unknown Rx Current Medications Generic Name Dose Route Start Last Admin Trade Name Freq PRN Reason Stop Dose Admin Acetaminophen 650 mg 08/04/21 15:55 08/05/21 12:26 Acetaminophen 325 Mg Tablet PO 09/03/21 15:54 650 mg Q4H PRN PRN Administration PAIN AND/OR FEVER Bupropion HCl 150 mg 08/05/21 10:00 08/06/21 09:40 Bupropion Hcl 150 Mg Tablet Xl PO 09/04/21 09:59 150 mg DAILY VERA Administration Sodium Chloride 1,000 mls @ 100 mls/hr 08/04/21 15:05 08/05/21 21:37 Sodium Chloride 0.9% 1000 Ml IV 09/03/21 15:04 100 mls/hr .Q10H VERA Administration Ceftriaxone Sodium/Dextrose 1 g in 50 mls @ 100 mls/hr 08/05/21 22:00 07/15 12/01 21:31 Rocephin 1 Gm-D5w 50 Ml Bag IV 08/08/21 21:59 100 mls/hr Q24H22 VERA Administration Miscellaneous Information 1 each 08/04/21 16:15 Medication Intervention 1 Each Each PO 09/03/21 16:14 .RN TO CHECK ON VERA Morphine Sulfate 4 mg 08/04/21 15:05 08/05/21 18:25 Morphine Sulfate 4 Mg/Ml Injection IV 08/09/21 15:04 4 mg Q4H PRN PRN Administration PAIN Multivitamins Therapeutic 1 tab 08/04/21 17:00 08/06/21 09:40 Multivitamins,Therapeutic 1 Tab Tab PO 09/03/21 16:59 1 tab DAILY VERA Administration Oxycodone/Acetaminophen 1 tab 08/04/21 16:03 08/05/21 08:35 Oxycodone Hcl/Apap 5 Mg/325 Mg Tablet PO 08/09/21 16:02 1 tab Q12H PRN PRN Administration PAIN Simvastatin 20 mg 08/04/21 22:00 08/05/21 21:31 Simvastatin 20 Mg Tablet PO 09/03/21 21:59 20 mg HS VERA Administration Zolpidem Tartrate 10 mg 08/04/21 22:00 08/05/21 21:31 Zolpidem Tartrate 10 Mg Tablet PO 09/03/21 21:59 10 mg HS VERA Administration Discontinued Medications Generic Name Dose Route Start Last Admin Trade Name Freq PRN Reason Stop Dose Admin Amoxicillin/Clavulanate Potassium 875 mg 08/04/21 10:42 08/04/21 11:21 Amox Tr/Potassium Clavulanate 875 Mg Tablet PO 08/04/21 10:43 875 mg STAT ONE Administration Amoxicillin/Clavulanate Potassium Confirm 08/04/21 11:18 Amox Tr/Potassium Clavulanate 875 Mg Tablet Administered 08/04/21 11:19 Dose 875 mg .ROUTE .STK-MED ONE Sodium Chloride 1,000 mls @ 999 mls/hr 08/04/21 08:05 08/04/21 10:49 Sodium Chloride 0.9% 1000 Ml IV 08/04/21 09:05 Infused .Q1H1M STA Infusion Sodium Chloride Confirm 08/04/21 08:17 Sodium Chloride 0.9% 1000 Ml Administered 08/04/21 08:18 Dose 1,000 mls @ ud .ROUTE .STK-MED ONE Ceftriaxone Sodium/Dextrose 1 g in 50 mls @ 100 mls/hr 08/04/21 22:00 08/04/21 21:44 Rocephin 1 Gm-D5w 50 Ml Bag IV 08/07/21 21:59 100 mls/hr Q24H10 VERA Administration Morphine Sulfate 2 mg 08/04/21 08:05 08/04/21 08:19 Morphine Sulfate 2 Mg/Ml Inj IV 08/04/21 08:06 2 mg STAT ONE Administration Morphine Sulfate Confirm 08/04/21 08:17 Morphine Sulfate 2 Mg/Ml Inj Administered 08/04/21 08:18 Dose 2 mg .ROUTE .STK-MED ONE Morphine Sulfate 4 mg 08/04/21 10:53 08/04/21 11:21 Morphine Sulfate 4 Mg/Ml Injection IV 08/04/21 10:54 4 mg STAT ONE Administration Morphine Sulfate Confirm 08/04/21 11:18 Morphine Sulfate 4 Mg/Ml Injection Administered 08/04/21 11:19 Dose 4 mg .ROUTE .STK-MED ONE Ondansetron HCl 4 mg 08/04/21 08:05 08/04/21 08:20 Zofran 4 Mg/Udtablet Orally Disintegrating PO 08/04/21 08:06 4 mg STAT ONE Administration Ondansetron HCl Confirm 08/04/21 08:17 Zofran 4 Mg/Udtablet Orally Disintegrating Administered 08/04/21 08:18 Dose 4 mg .ROUTE .STK-MED ONE Intake & Output (Last 24 hours) 08/03/21 08/04/21 08/05/21 08/06/21 11:59 11:59 11:59 11:59 Intake Total 1350 240 Output Total 1300 Balance 50 240 Weight 70.307 kg 67.9 kg Microbiology Results (Last 24 hours) 08/04/21 12:30 Blood Blood Culture Gram Stain - Final 08/04/21 12:30 Blood Blood Culture - Preliminary GRAM NEGATIVE ID AND SENSITIVITY PENDING 08/04/21 11:55 Blood Blood Culture Gram Stain - Final 08/04/21 11:55 Blood Blood Culture - Final Escherichia Coli 08/04/21 08:20 Urine, Void Urine Culture - Final Escherichia Coli Orders (Last 24 hours) Category Date Time Status House Regular Diet Diet 08/05/21 Lunch Active Discharge Routine Discharge 08/06/21 07:00 Ordered Discharge/Telephone Order Routine Discharge 08/06/21 07:00 Active Bupropion HCl Xl 150 mg [Wellbutrin XL 150 MG] Med 08/05/21 10:00 Active 150 mg PO DAILY Ceftriaxone 1 GM/50 ML PREMIX* [ROCEPHIN 1 Gm-D5w 50 ml Med 08/05/21 22:00 Active Bag] 1 g in 50 ml IV Q24H22 Patient Care Notes (Last 24 hours) 08/06/21 08:19 Case Management Note by Suzanne Calixto S/W PATIENT- SHE CONTINUES TO DENY ANY NEW NEEDS AT TIME OF DC. SHE PLANS TO RETURN HOME TO HER PRIOR LEVEL OF FUNCTIONING AT TIME OF DC Initialized on 08/06/21 08:19 - END OF NOTE 08/05/21 13:21 Case Management Note by Suzanne Calixto ROUNDED WITH DR. RIOJAS EARLIER TODAY- PATIENT ON ROCEPHIN FOR PYELONEPHRITIS. PATIENT TO GET ANOTHER DOSE OF ROCEPHIN THIS PM. PATENT CAN THEN DC HOME TOMORROW AM ON CIPRO Initialized on 08/05/21 13:21 - END OF NOTE - Vitals & Intake/Output Vital Signs: Vital Signs Temperature 97.7 F 08/06/21 08:00 Pulse Rate 75 08/06/21 08:00 Respiratory Rate 16 08/06/21 08:00 Blood Pressure 131/75 08/06/21 08:00 O2 Sat by Pulse Oximetry 95 08/06/21 08:00 Intake & Output: Intake & Output 08/03/21 08/04/21 08/05/21 08/06/21 11:59 11:59 11:59 11:59 Intake Total 1350 240 Output Total 1300 Balance 50 240 Weight 70.307 kg 67.9 kg - Lab Result Diagrams: 08/05/21 05:00 08/05/21 05:00 Micro Results-Entire Visit: Microbiology 08/04/21 12:30 Blood Culture Gram Stain - Final Blood Blood Culture - Preliminary GRAM NEGATIVE ID AND SENSITIVITY PENDING 08/04/21 11:55 Blood Culture Gram Stain - Final Blood Blood Culture - Final Escherichia Coli 08/04/21 08:20 Urine Culture - Final Urine, Void Escherichia Coli - Radiology Exams Ordered Rad Exams-Entire Visit: Radiology Procedures Category Date Time Status GALLBLADDER [US] Stat Exams 08/04/21 11:44 Completed Discharge Exam General Appearance: no apparent distress, alert Neurologic Exam: alert, oriented x 3, cooperative, normal mood/affect, nml cerebellar function, sensation nml, No motor deficits Eye Exam: PERRL, EOMI, eyes nml inspection Ears, Nose, Throat Exam: normal ENT inspection, pharynx normal, moist mucous membranes Neck Exam: normal inspection, non-tender, supple, full range of motion Respiratory Exam: normal breath sounds, lungs clear, No respiratory distress Cardiovascular Exam: regular rate/rhythm, normal heart sounds Gastrointestinal/Abdomen Exam: soft, No tenderness, No mass Pelvic Exam: deferred Rectal Exam: deferred Back Exam: normal inspection, normal range of motion, No CVA tenderness, No vertebral tenderness Extremity Exam: normal inspection, normal range of motion Skin Exam: normal color, warm, dry Final Diagnosis/Problem List - Final Discharge Diagnosis/Problem (1) Pyelonephritis Current Visit: Yes Status: Acute Priority: High Assessment & Plan: Chief Complaint Diagnosis abdominal painfor 2-3 days Allergies Allergy/AdvReac Type Severity Reaction Status Date / Time No Known Drug Allergies Allergy Verified 08/04/21 08:00 Vital Signs (Last 24 hours) Temp Pulse Resp BP Pulse Ox 08/06/21 08:00 97.7 F 75 16 131/75 95 08/06/21 04:00 97.3 F 77 18 122/71 95 08/06/21 00:00 98.9 F 82 18 119/72 94 L 08/05/21 20:00 97.1 F 79 18 129/75 95 08/05/21 16:00 97.1 F 83 16 112/62 95 08/05/21 12:00 97.5 F 78 16 118/79 99 Home Medications Medication Instructions Recorded Confirmed Last Taken Type Ciprofloxacin [Cipro 500 MG] 500 mg PO BID #20 tablet 08/05/21 Unknown Rx Current Medications Generic Name Dose Route Start Last Admin Trade Name Freq PRN Reason Stop Dose Admin Acetaminophen 650 mg 08/04/21 15:55 08/05/21 12:26 Acetaminophen 325 Mg Tablet PO 09/03/21 15:54 650 mg Q4H PRN PRN Administration PAIN AND/OR FEVER Bupropion HCl 150 mg 08/05/21 10:00 08/06/21 09:40 Bupropion Hcl 150 Mg Tablet Xl PO 09/04/21 09:59 150 mg DAILY VERA Administration Sodium Chloride 1,000 mls @ 100 mls/hr 08/04/21 15:05 08/05/21 21:37 Sodium Chloride 0.9% 1000 Ml IV 09/03/21 15:04 100 mls/hr .Q10H VERA Administration Ceftriaxone Sodium/Dextrose 1 g in 50 mls @ 100 mls/hr 08/05/21 22:00 08/05 21:31 Rocephin 1 Gm-D5w 50 Ml Bag IV 08/08/21 21:59 100 mls/hr Q24H22 VERA Administration Miscellaneous Information 1 each 08/04/21 16:15 Medication Intervention 1 Each Each PO 09/03/21 16:14 .RN TO CHECK ON VERA Morphine Sulfate 4 mg 08/04/21 15:05 08/05/21 18:25 Morphine Sulfate 4 Mg/Ml Injection IV 08/09/21 15:04 4 mg Q4H PRN PRN Administration PAIN Multivitamins Therapeutic 1 tab 08/04/21 17:00 08/06/21 09:40 Multivitamins,Therapeutic 1 Tab Tab PO 09/03/21 16:59 1 tab DAILY VERA Administration Oxycodone/Acetaminophen 1 tab 08/04/21 16:03 08/05/21 08:35 Oxycodone Hcl/Apap 5 Mg/325 Mg Tablet PO 08/09/21 16:02 1 tab Q12H PRN PRN Administration PAIN Simvastatin 20 mg 08/04/21 22:00 08/05/21 21:31 Simvastatin 20 Mg Tablet PO 09/03/21 21:59 20 mg HS VERA Administration Zolpidem Tartrate 10 mg 08/04/21 22:00 08/05/21 21:31 Zolpidem Tartrate 10 Mg Tablet PO 09/03/21 21:59 10 mg HS VERA Administration Discontinued Medications Generic Name Dose Route Start Last Admin Trade Name Freq PRN Reason Stop Dose Admin Amoxicillin/Clavulanate Potassium 875 mg 08/04/21 10:42 08/04/21 11:21 Amox Tr/Potassium Clavulanate 875 Mg Tablet PO 08/04/21 10:43 875 mg STAT ONE Administration Amoxicillin/Clavulanate Potassium Confirm 08/04/21 11:18 Amox Tr/Potassium Clavulanate 875 Mg Tablet Administered 08/04/21 11:19 Dose 875 mg .ROUTE .STK-MED ONE Sodium Chloride 1,000 mls @ 999 mls/hr 08/04/21 08:05 11/22/21 10:49 Sodium Chloride 0.9% 1000 Ml IV 08/04/21 09:05 Infused .Q1H1M STA Infusion Sodium Chloride Confirm 08/04/21 08:17 Sodium Chloride 0.9% 1000 Ml Administered 08/04/21 08:18 Dose 1,000 mls @ ud .ROUTE .STK-MED ONE Ceftriaxone Sodium/Dextrose 1 g in 50 mls @ 100 mls/hr 08/04/21 22:00 08/04/21 21:44 Rocephin 1 Gm-D5w 50 Ml Bag IV 08/07/21 21:59 100 mls/hr Q24H10 VERA Administration Morphine Sulfate 2 mg 08/04/21 08:05 08/04/21 08:19 Morphine Sulfate 2 Mg/Ml Inj IV 08/04/21 08:06 2 mg STAT ONE Administration Morphine Sulfate Confirm 08/04/21 08:17 Morphine Sulfate 2 Mg/Ml Inj Administered 08/04/21 08:18 Dose 2 mg .ROUTE .STK-MED ONE Morphine Sulfate 4 mg 08/04/21 10:53 08/04/21 11:21 Morphine Sulfate 4 Mg/Ml Injection IV 08/04/21 10:54 4 mg STAT ONE Administration Morphine Sulfate Confirm 08/04/21 11:18 Morphine Sulfate 4 Mg/Ml Injection Administered 08/04/21 11:19 Dose 4 mg .ROUTE .STK-MED ONE Ondansetron HCl 4 mg 08/04/21 08:05 08/04/21 08:20 Zofran 4 Mg/Udtablet Orally Disintegrating PO 08/04/21 08:06 4 mg STAT ONE Administration Ondansetron HCl Confirm 08/04/21 08:17 Zofran 4 Mg/Udtablet Orally Disintegrating Administered 08/04/21 08:18 Dose 4 mg .ROUTE .STK-MED ONE Intake & Output (Last 24 hours) 08/03/21 08/04/21 08/05/21 08/06/21 11:59 11:59 11:59 11:59 Intake Total 1350 240 Output Total 1300 Balance 50 240 Weight 70.307 kg 67.9 kg Microbiology Results (Last 24 hours) 08/04/21 12:30 Blood Blood Culture Gram Stain - Final 08/04/21 12:30 Blood Blood Culture - Preliminary GRAM NEGATIVE ID AND SENSITIVITY PENDING 08/04/21 11:55 Blood Blood Culture Gram Stain - Final 08/04/21 11:55 Blood Blood Culture - Final Escherichia Coli 08/04/21 08:20 Urine, Void Urine Culture - Final Escherichia Coli Orders (Last 24 hours) Category Date Time Status House Regular Diet Diet 08/05/21 Lunch Active Discharge Routine Discharge 08/06/21 07:00 Ordered Discharge/Telephone Order Routine Discharge 08/06/21 07:00 Active Bupropion HCl Xl 150 mg [Wellbutrin XL 150 MG] Med 08/05/21 10:00 Active 150 mg PO DAILY Ceftriaxone 1 GM/50 ML PREMIX* [ROCEPHIN 1 Gm-D5w 50 ml Med 08/05/21 22:00 Active Bag] 1 g in 50 ml IV Q24H22 Patient Care Notes (Last 24 hours) 08/06/21 08:19 Case Management Note by Suzanne Calixto S/W PATIENT- SHE CONTINUES TO DENY ANY NEW NEEDS AT TIME OF DC. SHE PLANS TO RETURN HOME TO HER PRIOR LEVEL OF FUNCTIONING AT TIME OF DC Initialized on 08/06/21 08:19 - END OF NOTE 08/05/21 13:21 Case Management Note by Suzanne Calixto ROUNDED WITH DR. RIOJAS EARLIER TODAY- PATIENT ON ROCEPHIN FOR PYELONEPHRITIS. PATIENT TO GET ANOTHER DOSE OF ROCEPHIN THIS PM. PATENT CAN THEN DC HOME TOMORROW AM ON CIPRO Initialized on 08/05/21 13:21 - END OF NOTE Code(s): N12 - TUBULO-INTERSTITIAL NEPHRITIS, NOT SPCF ACUTE OR CHRONIC (2) UTI (urinary tract infection) Current Visit: Yes Status: Acute Code(s): N39.0 - URINARY TRACT INFECTION, SITE NOT SPECIFIED (3) Diverticulosis Current Visit: Yes Status: Acute Code(s): K57.90 - DVRTCLOS OF INTEST, PART UNSP, W/O PERF OR ABSCESS W/O BLEED (4) Fatty liver Current Visit: Yes Status: Acute Code(s): K76.0 - FATTY (CHANGE OF) LIVER, NOT ELSEWHERE CLASSIFIED - Discharge Discharge Date: 08/06/21 Disposition: Home, Self-Care Condition: Stable Prescriptions: New Ciprofloxacin [Cipro 500 MG] 500 mg PO BID #20 tablet No Action Bupropion HCl [Wellbutrin] 150 mg PO DAILY Zolpidem Tartrate [Ambien] 10 mg PO HS Calcium Carb, Cit/Magnesium Ox [Calmag Thins Tablet] 1 each PO DAILY Oxycodone HCl/Acetaminophen [Oxycodone-Acetaminophen 5-325] 1 each PO Q12H PRN PRN PRN Reason: Pain Psyllium Husk [Fiber] 2 tab PO BID Pravastatin Sodium 20 mg PO HS Multivitamin [Multi-Vitamin Daily] 1 each PO DAILY Cyanocobalamin (Vitamin B-12) [Vitamin B-12] 5,000 mcg PO WEEKLY Instructions: Urinary Tract Infection, Adult (DC) Follow up with: YONI RIOJAS MD [Primary Care Provider] - 08/19/21 9:45 am
== END 2021-08-06 10:52 | disposition home or self-care (01) ==
LOC: ED 07:54 → UNDOADMOB 14:00 → MED SURG 14:00
PROVIDERS: ADMIT General Practice; ATTEND General Practice
DX: N12 Tubulo-interstitial nephritis, not specified as acute or chronic (principal); N39.0 Urinary tract infection, site not specified; K57.90 Diverticulosis of intestine, part unspecified, without perforation or abscess without bleeding; R10.11 Right upper quadrant pain; R11.2 Nausea with vomiting, unspecified; R19.7 Diarrhea, unspecified; K76.0 Fatty (change of) liver, not elsewhere classified; Z79.899 Other long term (current) drug therapy; Z20.828 Contact with and (suspected) exposure to other viral communicable diseases
CPT/HCPCS: 0241U; 36000; 36415; 74176; 76705; 80053; 81001; 83690; 84484; 85025; 87040; 87077; 87086; 87186; 93268; 94760; 96360; 96374; 96376; 99285; G0378; J0696; J2270; Q0162; A9270-GY

== ENCOUNTER 2022-06-17 07:58 | Day surgery (SDC) | payer MEDICARE, BC ==
[2022-06-17] MEDS ORDERED: Marcaine Mpf 0.5% Vial 30 Ml IJ ONE (07:59)
[2022-06-17] MEDS ORDERED: Depo-Medrol 40 MG/ML IM ONE (07:59)
[2022-06-17] MEDS ORDERED: DIPRIVAN 200 MG/20 ML IV ONE (09:48)
[2022-06-17] MEDS ORDERED: Lactated Ringers 1,000 ML IV ONE (10:17)
--- NOTE | 2022-06-17 11:27 | XRAY ---
Indication: Left hip and right greater trochanter bursa injections. Intraoperative fluoroscopy provided for 20 seconds. 2 digital spot image submitted for interpretation demonstrates needle tip projecting lateral to the left femur neck. Second needle tip lateral to the greater trochanter. Small amount of contrast injected for both needle tip placement. Correlate with intraoperative findings/report.
--- NOTE | 2022-06-17 11:28 | XRAY ---
Indication: Left shoulder injection. Intraoperative fluoroscopy provided for 11 seconds. Single digital spot image submitted for interpretation demonstrates needle tip projecting over the left glenohumeral joint superiorly. Small amount of contrast injected for needle tip placement. Correlate with intraoperative findings/report.
--- NOTE | 2022-06-17 13:23 | XRAY ---
20 seconds of fluoroscopy was used in surgery for a left hip greater trochanteric bursa and intra-articular injections.
--- NOTE | 2022-06-17 13:23 | XRAY ---
11 seconds of fluoroscopy was used in surgery for a left shoulder intra-articualr injection.
== END 2022-06-17 10:20 | disposition home or self-care (01) ==
LOC: SDC-PAIN 07:58
PROVIDERS: ATTEND Psychiatry & Neurology Pain Medicine
DX: M19.012 Primary osteoarthritis, left shoulder (principal); M16.12 Unilateral primary osteoarthritis, left hip; Z79.899 Other long term (current) drug therapy
CPT/HCPCS: 20610; 73030; 73502; 77002; J1030; J2704; Q9966

== ENCOUNTER 2023-07-14 11:13 | Day surgery (SDC) | payer MEDICARE, BC ==
[2023-07-14] MEDS ORDERED: BUPIVACAINE 0.5% VIAL IJ ONE (11:14)
[2023-07-14] MEDS ORDERED: Depo-Medrol 40 MG/ML IM ONE (11:14)
[2023-07-14] MEDS ORDERED: DIPRIVAN 200 MG/20 ML IV ONE ×2 (12:49→13:01)
[2023-07-14] MEDS ORDERED: MORPHINE SULFATE 2 MG INJ ONE (13:13)
[2023-07-14] MEDS ORDERED: Lactated Ringers 1,000 ML IV ONE (14:11)
--- NOTE | 2023-07-14 14:41 | XRAY ---
Indication: Bilateral L2-L5 MBB. Intraoperative fluoroscopy provided for 60 seconds. 3 digital spot image submitted for interpretation demonstrates posterior needle tips projecting over the expected left and right L2-L5 nerve roots. Correlate with intraoperative findings/report. Incidental L3-S1 fusion hardware.
--- NOTE | 2023-07-14 14:51 | XRAY ---
60 seconds of fluoroscopy was used in surgery for a bilateral L2-L5 MBB.
== END 2023-07-14 13:35 | disposition home or self-care (01) ==
LOC: SDC-PAIN 11:13
PROVIDERS: ATTEND Psychiatry & Neurology Pain Medicine
DX: M47.816 Spondylosis without myelopathy or radiculopathy, lumbar region (principal)
CPT/HCPCS: 64493; 64494; 64495; 72020; 77002; J1030; J2270; J2704

== ENCOUNTER 2024-11-09 08:50 | Emergency (ER) | payer MEDICARE, BC ==
[2024-11-09 09:19] VITALS: TEMP 97.4
--- NOTE | 2024-11-09 09:30 | XRAY ---
CLINICAL HISTORY: dizziness COMPARISON: None. TECHNIQUE: An axial non-contrast CT scan of the brain was performed from the skull base to the high parietal region. One of the following dose-reduction techniques was utilized for this exam. Automated exposure control, adjustment of the mA and/or kV according to patient size, and use of iterative reconstruction. CT scan performed according to ALARA principles. Automated exposure control used during the exam. FINDINGS: Patchy hypodensities in the bilateral cerebral deep and subcortical white matter region more on the occiptal region The ventricular system, cortical sulci, and basal cisterns are prominent and consistent with senile changes. Gayle-white matter differentiation is maintained. No midline shifts or deformity. No intracerebral or extra axial hematoma. Normal CT appearance of the posterior fossa structures namely the cerebellar hemispheres, brainstem, and cerebellar peduncles. The bony structures in the skull base are unremarkable. There are no definite calvarium fractures. The scanned paranasal sinuses are clear. IMPRESSION: 1. Patchy hypodensities in the bilateral cerebral deep and subcortical white matter region more on the occiptal region, are non-specific but may represent chronic microvascular white matter ischemic changes, However, the possibility of underlying age-indeterminate ischemic event cannot be entirely excluded if clinically warranted further evaluation with MRI with DWI images can be obtained. 2. Senile changes. 3. No intra or extra-axial hematomas or parenchymal territorial hypodense areas suggest acute ischemic event. 4. Early changes of stroke may not be detected on a CT scan. If there is strong clinical suspicion of stroke, then suggest MRI with diffusion-weighted imaging. Electronically Signed by: Es Reyes MD. (11/09/2024 09:26:10 EST) ADDENDUM: 11/09/2024 09:28:07 EST [facility] ER was called at [phone] at 08:22 AM [employer], 11/09/2024, and MAEGAN Heredia was informed regarding the stroke results. Electronically Signed by: Es Reyes MD. (11/09/2024 09:28:07 EST)
[2024-11-09 09:43] LABS: Absolute Neutrophil Ct (ANC) 6.41 x10^3/uL (1.56-6.13); BASOPHIL % 0.4 % (0.1-1.2); Basophil (Absolute #) 0.04 x10^3/uL (0.01-0.08); Eosinophil % 0.7 % (0.7-5.8); Eosinophil (Absolute #) 0.07 x10^3/uL (0.04-0.36); Hematocrit 42.7 % (34.1-44.9); Hemoglobin 14.4 g/dL (11.2-15.7); IMMATURE GRAN # 0.04 x10^3u/L (0.001-0.031); IMMATURE GRAN % 0.4 % (0.001-0.429); Lymphocyte (Absolute #) 2.46 x10^3/uL (1.18-3.74); Lymphocytes % 25.9 % (19.3-51.7); Mean Cell Volume 86.4 fL (79.4-94.8); Mean Corpuscular Hemoglobin 29.1 pg (25.6-32.2); Mean Corpuscular Hgb Concent. 33.7 g/dL (32.2-35.5); Mean Platelet Volume 10.1 fL (9.4-12.3); Monocyte (Absolute #) 0.47 x10^3/uL (0.24-0.86); Neutrophil % 67.6 % (34.0-71.1); Platelet Count 266 x10^3/uL (182-369); Red Blood Count 4.94 x10^6/uL (3.93-5.22); Red Cell Distribution Width 12.4 % (11.7-14.4); White Blood Count 9.5 x10^3/uL (3.98-10.04)
[2024-11-09 09:55] LABS: Appearance Clear (Clear); Bacteria Few /HPF (None Seen); Bilirubin Negative (Negative); Blood Negative (Negative); Epithelial Cells None Seen /HPF (None Seen); Glucose, Urine Negative (Negative); Hyaline Casts NONE SEEN /LPF (0-2); Ketones Negative (Negative); Leukocyte Esterase Moderate (Negative); Nitrite Negative (Negative); Ph 6.5 (4.6-8.0); Protein,Urine Dip Negative (Negative); RBC 0-2 /HPF (0-5); Urobilinogen 0.2 mg/dL (0.2); WBC 51-100 /HPF (0-5)
[2024-11-09 09:56] LABS: ALBUMIN 5.1 g/dL (3.5-5.0); ANION GAP 16.5 MEQ/L (5-15); BILIRUBIN,TOTAL 0.8 mg/dL (0.2-1.3); Calcium 10.9 mg/dL (8.4-10.2); Creatinine 1 0.51 mg/dL (0.52-1.04); EST GLOMERULAR FILTRATION RATE 102.3 ML/MIN; MAGNESIUM 2.2 mg/dL (1.6-2.3); Potassium 4.5 mmol/L (3.5-5.1); Total Protein 7.6 g/dL (6.3-8.2)
[2024-11-09] MEDS ORDERED: Sodium Chloride 0.9% 1000 ML 1,000 ML ONE (09:58)
[2024-11-09] MEDS ORDERED: ANTIVERT 25 MG ONE (09:58)
[2024-11-09] MEDS: Sodium Chloride 0.9% 1000 ML 1,000 ML IV SCH (10:00)
[2024-11-09] MEDS: ANTIVERT 25 MG PO ONE (10:00)
--- NOTE | 2024-11-09 10:16 | PCM.CONS ---
History of Present Illness - Reason for Consult Consulting Provider: ZE HOUSTON MD History of Present Illness: [facility] Consultation Physician Signature This document was electronically signed by: Ze Houston MD Consult Cover Page FROM: [employer], Call Back Number: [phone] SUBJECT: Consult Recommendations Date and Time of Report: 11/09/2024 10:11 AM ET Items Contained in this Document: Neurology Consult Note Consult Information Member Facility: [facility] Facility Consult ID: [id number] Facility Time Zone: ET Date and Time of Request: 11-09-2024 09:18 AM ET Requesting Clinician: Dr. Aguilera Patient Name: SHRAVAN MCCOY Date of : 1955 Gender: Female Patient identity was confirmed at the beginning of the consult with the patient/family/staff using two personal identifiers: Patient name and Reason for Consult Reason for Consult: Code Stroke TLKW less than 4.5 hours General Chief Complaint: Positional dizziness, nausea Patient Location and Admission Status: ED- Patient is not admitted Family Members and Medical Staff Present During Exam: Daughter at the bedside, RN assisting History of Present Illness: 69 year old woman with a history of hyperlipidemia, who awoke this AM at 07:30 EST with a sudden severe spinning sensation. She noted that when she rolled over or turned her head in bed to the left, her spinning became more intense and was associated with nausea and vomiting. She had no diplopia or visual changes. She noted no focal weakness, sensory loss, or changes in her speech. She had no tinnitus or hearing loss. She has never had similar symptoms in the past. She feels slightly improved since her arrival in the ER, but her spinning sensations have not fully resolved. Number of Documented HPI Elements: 1-3 Medical History Medical History: Hyperlipidemia Other Medical History: Diverticulosis, hiatal hernia Past Procedures: None Pertinent Family History: Unknown Allergies Allergies: NKDA Medications Anti-Coagulants: None Anti-Platelets: ASA 81 mg Other Medications: Ambien, Percocet, Pravastatin Social History Alcohol Use: Current Drug Use: None Tobacco Use: None Other Social History : Drinks beer or wine daily Vital Signs Temperature F: 97.4 Temperature C: 36.3 Blood Pressure (mmHg): 168/121 Heart Rate (bpm): 79 Respiration Rate (/min): 26 O2 Sat (%): 95 POC Glucose(mg/dL): 101 Oxygen Delivery Method: Room Air EKG Rhythm: Sinus Rhythm Date and Time: 11/09/2024 09:58:29 AM ET POC Glucose(mg/dL): 101 Review Of Systems General, Constitutional: All Negative Neurological: Pertinent Positives/Negatives Neurological comments: No prior history of TIA or stroke Cardiovascular: Pertinent Positives/Negatives Cardiovascular Comments: Has had chest pain in the past, but no documented history of CAD. Ears, Nose, Throat: Pertinent Positives/Negatives Ears, Nose, Throat Comments: No hearing loss or tinnitus Respiratory: Pertinent Positives/Negatives Respiratory comments: Granuloma in lung Gastrointestinal: Pertinent Positives/Negatives Gastrointestinal comments: History of divericulosis, fatty liver, hiatal hernia NIH Stroke Scale NIH Stroke Scale Score: 0 1. Level of Consciousness: 0 : alert; keenly responsive. 1a. LOC Questions: 0 : Answers both questions correctly. 1b. LOC Commands: 0 : Performs both tasks correctly. 2. Best Gaze: 0 : Normal. 3. Visual: 0 : No visual loss. 4. Facial Palsy: 0 : Normal symmetrical movements. 5a. Motor Left Arm: 0 : No drift; limb holds 90 (or 45) degrees for full 10 seconds. 5b. Motor Right Arm : 0 : No drift; limb holds 90 (or 45) degrees for full 10 seconds. 6a. Motor Left Le : No drift; leg holds 30-degree position for full 5 seconds. 6b. Motor Right Le : No drift; leg holds 30-degree position for full 5 seconds. 7. Limb Ataxia: 0 : Absent. 8. Sensory: 0 : Normal; no sensory loss. 9. Best Language: 0 : No aphasia; normal. 10. Dysarthria: 0 : Normal. 11. Extinction and inattention (formerly Neglect) : 0 : No abnormality. NIHSS Entry Time: 11/09/2024 09:59:50 AM ET Exam NEUROLOGICAL EXAMINATION MENTAL STATUS: She was awake, alert, and fully oriented. Speech was clear. Language was fluent. CRANIAL NERVES: Visual lcuero were full. Extraocular movements were full and conjugate. There was no ptosis. Facial sensation was intact to light touch. There was no facial asymmetry. MOTOR: There was no pronator drift. Fine motor function was intact in both hands. There was no fixed arm roll. She was able to elevate each leg off the bed for 5 seconds. SENSORY: Sensation was intact to light touch throughout COORDINATION: There was no nystagmus or dysmetria. She was able to sit without truncal ataxia. Floris-Hallpike maneuvers triggered sensations of vertigo bilaterally. Clinician assisting with exam: RN assisting Labs and Imaging Labs available?: Yes Blood Glucose (mg/dL): 101 WBC (mcL): 9.5 HGB (g/dL): 14.4 HCT (%): 42.7 PLT (mcL): 266 CT: Cortical atrophy, chronic microvascular changes, no acute abnormalities Assessment and Recommendations Assessment: 69 year old woman with a history of hyperlipidemia, who awoke this AM with positional vertigo. Moving her head in any direction triggers subjective spinning and nausea. She has no signs or symptoms suggestive of cerebellar or brainstem dysfunction. Cranial CT is normal. Should her symptoms fail to resolve or should focal neurological symptoms develop, a cerebal MRI should be obtained. Recommendations: 1. Meclizine 25-mg Q8H PRN 2. Ondansetron PRN nausea 3. If symptoms fail to resolve or if focal neurological symptoms develop, obtain a cerebal MRI 4. Outpatient Vestibular Therapy Disposition: Neurologically clear for discharge to OP follow up Diagnosis Impression: Vestibulopathy Case discussed with: Left cell phone number for Dr. Aguilera Inclusion Criteria Time Last Known Well: 11-09-2024 07:30 AM ET Neurological deficit considered to be disabling within 4.5 h of ischemic stroke symptom onset or patient last known well: No BP < 185/110: Yes Glucose > 50 mg/dL: Yes Exclusion Criteria Acute head trauma or recent severe head trauma within the previous 3 months: No Symptoms suggesting subarachnoid hemorrhage: No Elevated blood pressure despite IV medications (>185/>110 mm Hg): No Known coagulopathy - platelets <100,000/mm3, INR >1.7, aPTT >40s, PT >15s (do not wait for labs unless known thrombocytopenia or anticoagulation): No Thrombin inhibitors or factor Xa inhibitors - unless aPTT, INR, platelet count, ECT, TT, or appropriate direct factor Xa activity assays are normal or the patient has not received a dose for >48 hours (with normal renal function): No LMWH on anticoagulant (full treatment) dosing within < 24 hours: No Concomitant administration of IV Abciximab, or IV aspirin within 90 minutes after the start of IV alteplase initiation: No Extensive regions of marked clear and obvious hypodensity representing early ischemic changes irreversible injury: No Acute intracranial hemorrhage: No History of intracranial hemorrhage: No Symptoms consistent with infective endocarditis: No Known or suspected aortic arch dissection: No GI malignancy or recent GI bleed within 21 days: No Mild nondisabling stroke (NIHSS 0-5): No Prior ischemic stroke within previous 3 months: No Intracranial/intraspinal surgery within 3 months: No Intra-axial intracranial neoplasm: No Relative Exclusion Criteria One or more of the above relative contraindications render IV Thrombolysis inadvisable in my judgment.: No Thrombolysis Recommendation Thrombolysis recommended?: No Reason Thrombolysis not recommended Comments: No clinical suspicion of acute stroke. ICD-10 Code ICD-10 Code (Primary): H81.20 : Vestibular neuronitis, unspecified ear ICD-10 Code: H81.399 : Other peripheral vertigo, unspecified ear ICD-10 Code: E78.5 : Hyperlipidemia, unspecified Attestation Interaction Mode: Video & Phone Time of Phone Call : 11-09-2024 10:05 AM ET Time of Video Call : 11-09-2024 09:22 AM ET Interaction Attestation: Clinical telemedicine services delivered using HIPAA-c ompliant interactive video-audio telecommunications while the patient and the rendering provider were not in the same physical location. Written report was provided to the requesting provider. Evaluation Duration (mins): 50 Alexander Timer Summary ED Arrival Date and Time: 11-09-2024 09:10 AM ET Date and Time of Request: 11-09-2024 09:18 AM ET Physician Signature This document was electronically signed by: Ze Houston MD Medications & Allergies Home Medications: Home Medication List Zolpidem Tartrate [Ambien] 10 mg PO HS 12/23/13 [History Confirmed 11/09/24] Calcium Carb, Cit/Magnesium Ox [Calmag Thins Tablet] 1 each PO DAILY 01/16/16 [History Confirmed 11/09/24] Oxycodone HCl/Acetaminophen [Oxycodone-Acetaminophen 5-325] 1 each PO Q12H PRN PRN 01/16/16 [History Confirmed 11/09/24] Psyllium Husk [Fiber] 2 tab PO BID 01/16/16 [History Confirmed 11/09/24] Pravastatin Sodium 20 mg PO HS 11/08/17 [History Confirmed 11/09/24] Cyanocobalamin (Vitamin B-12) [Vitamin B-12] 5,000 mcg PO WEEKLY 04/13/21 [History Confirmed 11/09/24] Multivitamin [Multi-Vitamin Daily] 1 each PO DAILY 04/13/21 [History Confirmed 11/09/24] Allergies/Adverse Reactions: Allergies Allergy/AdvReac Type Severity Reaction Status Date / Time No Known Drug Allergies Allergy Verified 11/09/24 09:03 - Past Medical History Past Medical History: Yes Neurological History: No Pertinent History ENT History: Cataracts Cardiac History: High Cholesterol Respiratory History: No Pertinent History Endocrine Medical History: No Pertinent History Musculoskelatal History: Fractures GI Medical History: Diverticulitis History: Other Pyscho-Social History: Depression Reproductive Disorders: Fibroids Comment: HX OF CARPAL TUNNEL SURGERY, FUSION TO LUMBAR AREA, ANKLE SURGERY - Past Surgical History Past Surgical History: Yes Neuro Surgical History: No Pertinent History Cardiac History: Cardiac Catheterization Respiratory Surgery: No Pertinent History GI Surgical History: No Pertinent History Genitourinary Surgical Hx: Kidney Surgery Musculskeletal Surgical Hx: Other Female Surgical History: Hysterectomy Other Surgical History: RIGHT ANKLE, KIDNEY STONE REMOVED, CARPAL TUNNEL SURGERY, FUSION TO LUMBAR AREA - Social History Smoking Status: Never smoker Exposure to second hand smoke: No Alcohol: Daily Drug Use: none - Social Determinants of Health Will the patient participate in the screening: Yes Do you worry about a steady place to live?: No Do you have any problems with any of the following?: No known problems In the past 12 months,have you had to go without utilities?: No Have you or anyone in your house had to go without enough: No Transportation Issues: No Has anyone in your support network made you feel unsafe?: No - Physical Exam Vital Signs: Vital Signs - 24 hr Temp Pulse Resp BP Pulse Ox 11/09/24 10:00 76 18 148/98 94 L 11/09/24 09:46 78 28 H 185/98 93 L 11/09/24 09:39 146/109 11/09/24 09:22 75 27 H 167/107 94 L 11/09/24 09:21 79 21 152/105 95 11/09/24 09:20 78 19 163/89 94 L 11/09/24 09:19 97.4 F 11/09/24 09:11 77 20 160/109 96 11/09/24 09:04 79 26 H 168/121 11/09/24 09:03 95 Results - Labs Lab/Micro Results: Lab Results-Last 24 Hours 11/09/24 11/09/24 11/09/24 Range/Units 09:14 09:15 09:15 WBC 9.5 (3.98-10.04) x10^3/uL RBC 4.94 (3.93-5.22) x10^6/uL Hgb 14.4 (11.2-15.7) g/dL Hct 42.7 (34.1-44.9) % MCV 86.4 (79.4-94.8) fL MCH 29.1 (25.6-32.2) pg MCHC 33.7 (32.2-35.5) g/dL RDW 12.4 (11.7-14.4) % Plt Count 266 (182-369) x10^3/uL MPV 10.1 (9.4-12.3) fL Gran % 67.6 (34.0-71.1) % Immature Gran % (Auto) 0.4 (0.001-0.429) % Nucleat RBC Rel Count 0.0 (0.00-0.2) % Eos # (Auto) 0.07 (0.04-0.36) x10^3/uL Immature Gran # (Auto) 0.04 H (0.001-0.031) x10^3u/L Absolute Lymphs (auto) 2.46 (1.18-3.74) x10^3/uL Absolute Monos (auto) 0.47 (0.24-0.86) x10^3/uL Absolute Nucleated RBC 0.00 (0.00-0.012) x10^3u/L Lymphocytes % 25.9 (19.3-51.7) % Monocytes % 5.0 (4.7-12.5) % Eosinophils % 0.7 (0.7-5.8) % Basophils % 0.4 (0.1-1.2) % Absolute Granulocytes 6.41 H (1.56-6.13) x10^3/uL Basophils # 0.04 (0.01-0.08) x10^3/uL Sodium 140 (135-145) mmol/L Potassium 4.5 (3.5-5.1) mmol/L Chloride 104 (98-107) mmol/L Carbon Dioxide 24 (22-30) mmol/L Anion Gap 16.5 H (5-15) MEQ/L BUN 21 H (7-17) mg/dL Creatinine 0.51 L (0.52-1.04) mg/dL Estimated GFR 102.3 ML/MIN Glucose 103 (74-106) mg/dL POC Glucometer 101 (74 to 106) mg/dL Calcium 10.9 H (8.4-10.2) mg/dL Magnesium 2.2 (1.6-2.3) mg/dL Total Bilirubin 0.80 (0.2-1.3) mg/dL AST 30 (14-36) U/L ALT 30 (0-35) U/L Alkaline Phosphatase 53 (38-126) U/L Serum Total Protein 7.6 (6.3-8.2) g/dL Albumin 5.1 H (3.5-5.0) g/dL Urine Color (Yellow) Urine Appearance (Clear) Urine pH (4.6-8.0) Ur Specific Sunman (1.005-1.030) Urine Protein (Negative) Urine Glucose (UA) (Negative) mg/dL Urine Ketones (Negative) Urine Blood (Negative) Urine Nitrite (Negative) Urine Bilirubin (Negative) Urine Urobilinogen (0.2) mg/dL Ur Leukocyte Esterase (Negative) U Hyaline Cast (Auto) (0-2) /LPF Urine Microscopic RBC (0-5) /HPF Urine Microscopic WBC (0-5) /HPF Ur Epithelial Cells (None Seen) /HPF Urine Bacteria (None Seen) /HPF Urine Culture Reflexed (NO) 11/09/24 Range/Units 09:45 WBC (3.98-10.04) x10^3/uL RBC (3.93-5.22) x10^6/uL Hgb (11.2-15.7) g/dL Hct (34.1-44.9) % MCV (79.4-94.8) fL MCH (25.6-32.2) pg MCHC (32.2-35.5) g/dL RDW (11.7-14.4) % Plt Count (182-369) x10^3/uL MPV (9.4-12.3) fL Gran % (34.0-71.1) % Immature Gran % (Auto) (0.001-0.429) % Nucleat RBC Rel Count (0.00-0.2) % Eos # (Auto) (0.04-0.36) x10^3/uL Immature Gran # (Auto) (0.001-0.031) x10^3u/L Absolute Lymphs (auto) (1.18-3.74) x10^3/uL Absolute Monos (auto) (0.24-0.86) x10^3/uL Absolute Nucleated RBC (0.00-0.012) x10^3u/L Lymphocytes % (19.3-51.7) % Monocytes % (4.7-12.5) % Eosinophils % (0.7-5.8) % Basophils % (0.1-1.2) % Absolute Granulocytes (1.56-6.13) x10^3/uL Basophils # (0.01-0.08) x10^3/uL Sodium (135-145) mmol/L Potassium (3.5-5.1) mmol/L Chloride (98-107) mmol/L Carbon Dioxide (22-30) mmol/L Anion Gap (5-15) MEQ/L BUN (7-17) mg/dL Creatinine (0.52-1.04) mg/dL Estimated GFR ML/MIN Glucose (74-106) mg/dL POC Glucometer (74 to 106) mg/dL Calcium (8.4-10.2) mg/dL Magnesium (1.6-2.3) mg/dL Total Bilirubin (0.2-1.3) mg/dL AST (14-36) U/L ALT (0-35) U/L Alkaline Phosphatase (38-126) U/L Serum Total Protein (6.3-8.2) g/dL Albumin (3.5-5.0) g/dL Urine Color Yellow (Yellow) Urine Appearance Clear (Clear) Urine pH 6.5 (4.6-8.0) Ur Specific Sunman 1.010 (1.005-1.030) Urine Protein Negative (Negative) Urine Glucose (UA) Negative (Negative) mg/dL Urine Ketones Negative (Negative) Urine Blood Negative (Negative) Urine Nitrite Negative (Negative) Urine Bilirubin Negative (Negative) Urine Urobilinogen 0.2 (0.2) mg/dL Ur Leukocyte Esterase Moderate A (Negative) U Hyaline Cast (Auto) NONE SEEN (0-2) /LPF Urine Microscopic RBC 0-2 (0-5) /HPF Urine Microscopic WBC 51-100 A (0-5) /HPF Ur Epithelial Cells None Seen (None Seen) /HPF Urine Bacteria Few A (None Seen) /HPF Urine Culture Reflexed YES (NO) - Radiology Impressions Radiology Exams & Impressions: Radiology Procedures Category Date Time Status CHEST 1 VIEW (PORTABLE) Stat Exams 11/09/24 09:20 Ordered HEAD WITHOUT CONTRAST [CT] Stat Exams 11/09/24 08:53 Completed
[2024-11-09] MEDS ORDERED: Zofran 4 MG/2 ML VIAL ONE (10:23)
[2024-11-09] MEDS: Zofran 4 MG/2 ML VIAL IV ONE (10:31)
--- NOTE | 2024-11-09 10:52 | XRAY ---
CLINICAL HISTORY: dizziness COMPARISON: No prior studies are available for comparison. TECHNIQUE: An X-ray image of the chest is obtained in AP projection. FINDINGS: Pulmonary Parenchyma: Low lung volumes seen No evidence of consolidation, collapse, or focal opacities. No pulmonary nodules are identified. No evidence of pleural effusion or pleural thickening. Heart and Mediastinum: Heart size and shape are normal. Vascular congestion noted. Ecstatic aorta seen. No mediastinal widening or masses. Right hilar nodular densities seen concerning for adenopathy. Bony Thorax: Bony thorax appears intact without fractures or deformities. Soft Tissues: Soft tissues overlying the chest wall are unremarkable. IMPRESSION: 1. Vascular congestion noted. 2. Right hilar nodular densities seen concerning for adenopathy. Recommend CT if clinically advised. Electronically Signed by: Es Reyes MD. (11/09/2024 10:48:54 EST)
[2024-11-09] MEDS ORDERED: ROCEPHIN 2 GM/100 ML NACL 2 GM/100 ML IVPB IV ONE (10:53)
[2024-11-09] MEDS: ROCEPHIN 2 GM/100 ML NACL 2 GM/100 ML IVPB IV ONE (10:54)
--- NOTE | 2024-11-09 11:12 | ERPHSYRPT ---
- History of Present Illness Time Seen by Provider: 11/09/24 09:05 Source: patient, family Exam Limitations: no limitations Patient Subjective Stated Complaint: C/O dizziness that began upon awakening at 0730 today. States normal when went to bed last night around 10:30pm. Indicates the room is spinning; more so in the left eye than the right eye. Triage Nursing Assessment: Patient alert and oriented. NO SOB. Skin tone normal. LANE WNL. See NIH scale/score. Physician History: 69-year-old female presented in the ER with sudden onset dizziness/spinning sensation started this morning around 730 when she woke up with turning on the left side made it worse. Denies any visual changes/diplopia. No numbness tingling or focal weakness. Patient reports symptoms worsening with movements of her head. Reports associated nausea and dry heaving. No history of URI/tinnitus/vertigo. Denies any chest pain palpitations or shortness of breath. No difficulty speech. Denies being wobbly or disturbed gait with ambulation. Last well-known 10:30 PM last night Allergies/Adverse Reactions: No Known Drug Allergies Allergy (Verified 11/09/24 09:03) Home Medications: Zolpidem Tartrate [Ambien] 10 mg PO HS 12/23/13 [History] Calcium Carb, Cit/Magnesium Ox [Calmag Thins Tablet] 1 each PO DAILY 01/16/16 [History] Oxycodone HCl/Acetaminophen [Oxycodone-Acetaminophen 5-325] 1 each PO Q12H PRN PRN 01/16/16 [History] Psyllium Husk [Fiber] 2 tab PO BID 01/16/16 [History] Pravastatin Sodium 20 mg PO HS 11/08/17 [History] Cyanocobalamin (Vitamin B-12) [Vitamin B-12] 5,000 mcg PO WEEKLY 04/13/21 [History] Multivitamin [Multi-Vitamin Daily] 1 each PO DAILY 04/13/21 [History] Hx Tetanus, Diphtheria Vaccination/Date Given: Yes Hx Influenza Vaccination/Date Given: Yes Hx Pneumococcal Vaccination/Date Given: No Immunizations Up to Date: Yes Travel Risk - International Travel Have you traveled outside of the country in past 3 weeks: No - Emerging Infectious Disease Are you exhibiting symptoms associated with any current EIDs: No - Review of Systems Constitutional: Fatigue Eyes: No Symptoms Ears, Nose, & Throat: No Symptoms Respiratory: No Symptoms Cardiac: No Symptoms Abdominal/Gastrointestinal: Nausea Genitourinary Symptoms: No Symptoms Musculoskeletal: No Symptoms Neurological: Dizziness Psychological: No Symptoms Endocrine: No Symptoms Hematologic/Lymphatic: No Symptoms Immunological/Allergic: No Symptoms - Past Medical History Pertinent Past Medical History: Yes Neurological History: No Pertinent History ENT History: Cataracts Cardiac History: High Cholesterol Respiratory History: No Pertinent History Endocrine Medical History: No Pertinent History Musculoskeletal History: Fractures GI Medical History: Diverticulitis History: Other Psycho-Social History: Depression Female Reproductive Disorders: Fibroids Other Medical History: HX OF CARPAL TUNNEL SURGERY, FUSION TO LUMBAR AREA, ANKLE SURGERY - Past Surgical History Past Surgical History: Yes Neuro Surgical History: No Pertinent History Cardiac: Cardiac Catheterization Respiratory: No Pertinent History Gastrointestinal: No Pertinent History Genitourinary: Kidney Surgery Musculoskeletal: Other Female Surgical History: Hysterectomy Other Surgical History: RIGHT ANKLE, KIDNEY STONE REMOVED, CARPAL TUNNEL SURGERY, FUSION TO LUMBAR AREA - Social History Smoking Status: Never smoker Exposure to second hand smoke: No Drug Use: none - Social Determinants of Health Will the patient participate in the screening: Yes Do you worry about a steady place to live?: No Do you have any problems with any of the following?: No known problems In the past 12 months,have you had to go without utilities?: No Transportation Issues: No Has anyone in your support network made you feel unsafe?: No Have you or anyone in your house had to go w/o enough food: No - Nursing Vital Signs Nursing Vital Signs: Initial Vital Signs O2 Sat by Pulse Oximetry 95 11/09/24 09:03 Pain Scale Pain Intensity 0 - Ramón Coma Scale Best Eye Response (Ramón): (4) open spontaneously Best Verbal Response (Ramón): (5) oriented Best Motor Response (Zephyr): (6) obeys commands Ramón Total: 15 - Physical Exam General Appearance: no apparent distress, alert Eye Exam: bilateral eye: normal inspection, PERRL, EOMI Ears, Nose, Throat Exam: normal ENT inspection Neck Exam: normal inspection, non-tender, supple, full range of motion Respiratory: normal breath sounds, lungs clear Cardiovascular: regular rate/rhythm, normal heart sounds Gastrointestinal: soft, normal bowel sounds, No tenderness Back Exam: normal inspection, normal range of motion Extremity Exam: normal inspection, normal range of motion Mental Status: alert, oriented x 3, 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 Exam: normal hearing, normal speech, PERRL Coordination/Gait: normal finger to nose, normal cerebellar function, negative Romberg's sign Motor/Sensory: no motor deficit, no sensory deficit, no pronator drift, negative Babinski's sign DTR: bicep (R): 2+, bicep (L): 2+, knee (R): 2+, knee (L): 2+ Skin Exam: normal color SpO2 Interpretation: normal SpO2: 94 O2 Delivery: Room Air - Course EKG Interpreted by Me: RATE (77), Sinus Rhythm, NORMAL AXIS, NORMAL INTERVALS, NORMAL QRS Ordered Tests: Active Orders 24 hr Category Date Time Status EKG-ER Only STAT Care 11/09/24 09:20 Active IV Insertion STAT Care 11/09/24 09:20 Active NPO (ED) STAT Care 11/09/24 09:20 Active CHEST 1 VIEW (PORTABLE) Stat Exams 11/09/24 09:20 Completed HEAD WITHOUT CONTRAST [CT] Stat Exams 11/09/24 08:53 Completed CBC W DIFF Stat Lab 11/09/24 09:15 Completed CMP Stat Lab 11/09/24 09:15 Completed CULTURE,URINE Stat Lab 11/09/24 09:45 Received MAG [MAGNESIUM] Stat Lab 11/09/24 09:15 Completed POCT GLUCOSE Stat Lab 11/09/24 09:14 Completed TROPONIN Q3H Lab 11/09/24 09:15 Completed TROPONIN Q3H Lab 11/09/24 12:30 Received TROPONIN Q3H Lab 11/09/24 15:30 Ordered UA W/RFX UR CULTURE Stat Lab 11/09/24 09:45 Completed Medication Summary Generic Name Dose Route Start Last Admin Trade Name Freq PRN Reason Stop Dose Admin Sodium Chloride 1,000 mls @ 100 mls/hr 11/09/24 09:30 11/09/24 12:13 Sodium Chloride 0.9% 1000 Ml IV 12/09/24 09:29 Infused .Q10H VERA Infusion Discontinued Medications Generic Name Dose Route Start Last Admin Trade Name Freq PRN Reason Stop Dose Admin Ceftriaxone Sodium 2 gm in 100 mls @ 200 mls/hr 11/09/24 10:41 11/09/24 11:27 Rocephin 2 Gm/100 Ml Nacl IV 11/09/24 11:10 Infused STAT ONE Infusion Ceftriaxone Sodium Confirm 11/09/24 10:53 Rocephin 2 Gm/100 Ml Nacl Administered 11/09/24 10:54 Dose 2 gm in 100 mls @ ud IV .STK-MED ONE Meclizine HCl 25 mg 11/09/24 09:45 11/09/24 10:00 Meclizine Hcl 25 Mg Tablet PO 11/09/24 09:46 25 mg STAT ONE Administration Meclizine HCl Confirm 11/09/24 09:58 Meclizine Hcl 25 Mg Tablet Administered 11/09/24 09:59 Dose 25 mg .ROUTE .STK-MED ONE Ondansetron HCl 4 mg 11/09/24 10:05 11/09/24 10:31 Ondansetron Hcl 4 Mg/2 Ml Vial IV 11/09/24 10:06 4 mg STAT ONE Administration Ondansetron HCl Confirm 11/09/24 10:23 Ondansetron Hcl 4 Mg/2 Ml Vial Administered 11/09/24 10:24 Dose 4 mg .ROUTE .STK-MED ONE Lab/Rad Data: Laboratory Result Diagrams 11/09/24 09:15 11/09/24 09:15 Laboratory Results 11/09/24 11/09/24 11/09/24 Range/Units 09:45 09:15 09:15 WBC (3.98-10.04) x10^3/uL RBC (3.93-5.22) x10^6/uL Hgb (11.2-15.7) g/dL Hct (34.1-44.9) % MCV (79.4-94.8) fL MCH (25.6-32.2) pg MCHC (32.2-35.5) g/dL RDW (11.7-14.4) % Plt Count (182-369) x10^3/uL MPV (9.4-12.3) fL Gran % (34.0-71.1) % Immature Gran % (Auto) (0.001-0.429) % Nucleat RBC Rel Count (0.00-0.2) % Eos # (Auto) (0.04-0.36) x10^3/uL Immature Gran # (Auto) (0.001-0.031) x10^3u/L Absolute Lymphs (auto) (1.18-3.74) x10^3/uL Absolute Monos (auto) (0.24-0.86) x10^3/uL Absolute Nucleated RBC (0.00-0.012) x10^3u/L Lymphocytes % (19.3-51.7) % Monocytes % (4.7-12.5) % Eosinophils % (0.7-5.8) % Basophils % (0.1-1.2) % Absolute Granulocytes (1.56-6.13) x10^3/uL Basophils # (0.01-0.08) x10^3/uL Sodium 140 (135-145) mmol/L Potassium 4.5 (3.5-5.1) mmol/L Chloride 104 (98-107) mmol/L Carbon Dioxide 24 (22-30) mmol/L Anion Gap 16.5 H (5-15) MEQ/L BUN 21 H (7-17) mg/dL Creatinine 0.51 L (0.52-1.04) mg/dL Estimated GFR 102.3 ML/MIN Glucose 103 (74-106) mg/dL POC Glucometer (74 to 106) mg/dL Calcium 10.9 H (8.4-10.2) mg/dL Magnesium 2.2 (1.6-2.3) mg/dL Total Bilirubin 0.80 (0.2-1.3) mg/dL AST 30 (14-36) U/L ALT 30 (0-35) U/L Alkaline Phosphatase 53 (38-126) U/L Troponin I < 0.012 (0.000-0.033) ng/mL Serum Total Protein 7.6 (6.3-8.2) g/dL Albumin 5.1 H (3.5-5.0) g/dL Urine Color Yellow (Yellow) Urine Appearance Clear (Clear) Urine pH 6.5 (4.6-8.0) Ur Specific [place] 1.010 (1.005-1.030) Urine Protein Negative (Negative) Urine Glucose (UA) Negative (Negative) mg/dL Urine Ketones Negative (Negative) Urine Blood Negative (Negative) Urine Nitrite Negative (Negative) Urine Bilirubin Negative (Negative) Urine Urobilinogen 0.2 (0.2) mg/dL Ur Leukocyte Esterase Moderate A (Negative) U Hyaline Cast (Auto) NONE SEEN (0-2) /LPF Urine Microscopic RBC 0-2 (0-5) /HPF Urine Microscopic WBC 51-100 A (0-5) /HPF Ur Epithelial Cells None Seen (None Seen) /HPF Urine Bacteria Few A (None Seen) /HPF Urine Culture Reflexed YES (NO) 11/09/24 11/09/24 Range/Units 09:15 09:14 WBC 9.5 (3.98-10.04) x10^3/uL RBC 4.94 (3.93-5.22) x10^6/uL Hgb 14.4 (11.2-15.7) g/dL Hct 42.7 (34.1-44.9) % MCV 86.4 (79.4-94.8) fL MCH 29.1 (25.6-32.2) pg MCHC 33.7 (32.2-35.5) g/dL RDW 12.4 (11.7-14.4) % Plt Count 266 (182-369) x10^3/uL MPV 10.1 (9.4-12.3) fL Gran % 67.6 (34.0-71.1) % Immature Gran % (Auto) 0.4 (0.001-0.429) % Nucleat RBC Rel Count 0.0 (0.00-0.2) % Eos # (Auto) 0.07 (0.04-0.36) x10^3/uL Immature Gran # (Auto) 0.04 H (0.001-0.031) x10^3u/L Absolute Lymphs (auto) 2.46 (1.18-3.74) x10^3/uL Absolute Monos (auto) 0.47 (0.24-0.86) x10^3/uL Absolute Nucleated RBC 0.00 (0.00-0.012) x10^3u/L Lymphocytes % 25.9 (19.3-51.7) % Monocytes % 5.0 (4.7-12.5) % Eosinophils % 0.7 (0.7-5.8) % Basophils % 0.4 (0.1-1.2) % Absolute Granulocytes 6.41 H (1.56-6.13) x10^3/uL Basophils # 0.04 (0.01-0.08) x10^3/uL Sodium (135-145) mmol/L Potassium (3.5-5.1) mmol/L Chloride (98-107) mmol/L Carbon Dioxide (22-30) mmol/L Anion Gap (5-15) MEQ/L BUN (7-17) mg/dL Creatinine (0.52-1.04) mg/dL Estimated GFR ML/MIN Glucose (74-106) mg/dL POC Glucometer 101 (74 to 106) mg/dL Calcium (8.4-10.2) mg/dL Magnesium (1.6-2.3) mg/dL Total Bilirubin (0.2-1.3) mg/dL AST (14-36) U/L ALT (0-35) U/L Alkaline Phosphatase (38-126) U/L Troponin I (0.000-0.033) ng/mL Serum Total Protein (6.3-8.2) g/dL Albumin (3.5-5.0) g/dL Urine Color (Yellow) Urine Appearance (Clear) Urine pH (4.6-8.0) Ur Specific [place] (1.005-1.030) Urine Protein (Negative) Urine Glucose (UA) (Negative) mg/dL Urine Ketones (Negative) Urine Blood (Negative) Urine Nitrite (Negative) Urine Bilirubin (Negative) Urine Urobilinogen (0.2) mg/dL Ur Leukocyte Esterase (Negative) U Hyaline Cast (Auto) (0-2) /LPF Urine Microscopic RBC (0-5) /HPF Urine Microscopic WBC (0-5) /HPF Ur Epithelial Cells (None Seen) /HPF Urine Bacteria (None Seen) /HPF Urine Culture Reflexed (NO) - Progress Progress: improved Progress Note: 11/09/24 12:41 69-year-old is evaluated in the ER for sudden onset spinning sensation upon waking up when she turned on the left. No other focal neuro deficit noticed throughout stay in the ER. Prompt CT head is obtained which is negative for any acute intracranial findings reviewed by me/neurology and official report. Chest x-ray is negative for any acute intrathoracic findings reviewed by me followed by official report Prompt [facility] neurology consult is obtained and discussed with Dr. Sanchez who has seen patient in the ER, do not think patient has central vertigo but more of a peripheral vertigo symptoms, she is given fluids and meclizine, on reevaluation her symptoms are completely resolved. Neuroexam remained nonfocal. Workup showed normal white count, chemistries fairly unremarkable and does have UTI and given a dose of Rocephin. EKG is sinus rhythm with no acute ischemic changes. Neurology do not think patient needs any further workup and can be discharged once patient is asymptomatic which she is currently and will give meclizine to go home to take as needed. Discussed signs symptoms of worsening needing return to ER which she seems understanding. Stable for discharge. Complexity of problem addressed: High acute Complexity of data reviewed/analyzed: Extensive Risk of complication/morbidity/mortality inpatient management: High risk Discussed with Dr.: Other (Dr. Sanchez) Counseled pt/family regarding: lab results, diagnosis, need for follow-up, rad results Medical Desision Making - Independent Historian Additional History obtained from: Child - Discussion of managment Care discussed with:: specialist (Dr. Sanchez [facility] neurology) Reviewed:: Test results Agreed on:: Treatment plan Will see patient: in ED - Diagnostic Testing Diagnostic test were ordered, analyzed, and reviewed by me: Yes Radiological Interpretation: Interpreted by me, Reviewed by me, Teleradiologist Report - Risk of complications The pt has a mod risk of morbidity or mortality based on: Need for prescription drug management - Departure Departure Disposition: Home Clinical Impression: Peripheral vertigo, Acute UTI (urinary tract infection) Condition: Stable Critical Care Time: No Referrals: YONI RIOJAS MD [Primary Care Provider] - Follow up with PCP 1 day Instructions: Vertigo (a Type of Dizziness) (DC) Additional Instructions: Drink plenty of fluids. Take meclizine as needed. Follow-up with primary care for reevaluation. Return to ER for worsening of symptoms. Prescriptions: Meclizine HCl 25 mg [Antivert 25 mg] 25 mg PO Q8HPRN PRN #12 tablet PRN Reason: Dizziness Cephalexin Mh 500 mg [Keflex 500 mg] 500 mg PO TID #21 cap
[2024-11-09 13:05] VITALS: BP 151/88; PULSE 76; RESP 11; O2SAT 92
== END 2024-11-09 13:37 | disposition home or self-care (01) ==
LOC: ED 08:50
DX: H81.399 Other peripheral vertigo, unspecified ear (principal); N39.0 Urinary tract infection, site not specified; R11.0 Nausea; E78.5 Hyperlipidemia, unspecified; Z79.899 Other long term (current) drug therapy
CPT/HCPCS: 36415; 70450; 71045; 80053; 81001; 82947; 83735; 84484; 85025; 87077; 87086; 87186; 93005; 96361; 96365; 96375; 99285; Q3014; 96374; J0696; J2405; A9270-GY